=== PATIENT | male | born 1970 | race Caucasian/White ===

== ENCOUNTER 2018-05-18 03:20 | Emergency (ER) | payer BC ==
[2018-05-18] MEDS ORDERED: Sodium Chloride 0.9% 1,000 ML IV ONE (03:26)
[2018-05-18] MEDS ORDERED: Pantoprazole 40 MG Vial IVPUSH ONE (03:39)
[2018-05-18] MEDS ORDERED: Alum Hydrox/Mag Hydrox/Simeth 15 ML, Metoclopramide 5 MG, Lidocaine 2% 5 ML PO ONE ×3 (03:39)
[2018-05-18] MEDS ORDERED: Aspirin 81 MG Tab.Chew PO ONE (03:40)
--- NOTE | 2018-05-18 03:42 | EDM.PDOC ---
ED HPI GENERAL MEDICAL PROBLEM - General Chief Complaint: Abdominal Pain Stated Complaint: ABDOMINAL PAIN Time Seen by Provider: 05/18/18 03:39 - History of Present Illness INITIAL COMMENTS - FREE TEXT/NARRATIVE: HISTORY AND PHYSICAL: History of present illness: Patient's 48-year-old white male presents with a concern of abdominal pain 2 days he describes this as a burning and felt this was indigestion but had no improvement with antacids there is no association shortness of breath palpitations nausea vomiting patient states he did feel somewhat sweaty tonight with this episode he denies history of hypertension diabetes or known cardiac disease Review of systems: As per history of present illness and below otherwise all systems reviewed and negative. Past medical history: As per history of present illness and as reviewed below otherwise noncontributory. Surgical history: As per history of present illness and as reviewed below otherwise noncontributory. Social history: No reported history of drug or alcohol abuse. Family history: As per history of present illness and as reviewed below otherwise noncontributory. Physical exam: HEENT: Atraumatic, normocephalic, pupils reactive, negative for conjunctival pallor or scleral icterus, mucous membranes moist, throat clear, neck supple, nontender, trachea midline. Lungs: Clear to auscultation, breath sounds equal bilaterally, chest nontender. Heart: S1S2, regular, negative for clicks, rubs, or JVD. Abdomen: Soft, nondistended, nontender. Negative for masses or hepatosplenomegaly. Negative for costovertebral tenderness. Pelvis: Stable nontender. Genitourinary: Deferred. Rectal: Deferred. Extremities: Atraumatic, negative for cords or calf pain. Neurovascular unremarkable. Neuro: Awake, alert, oriented. Cranial nerves II through XII unremarkable. Cerebellum unremarkable. Motor and sensory unremarkable throughout. Exam nonfocal. Diagnostics: CBC CMP PT/INR troponin chest x-ray EKG lipase Therapeutics: IV O2 monitor aspirin 324 mg GI cocktail Protonix 80 mg IV Impression: #1 epigastric abdominal pain Definitive disposition and diagnosis as appropriate pending reevaluation and review of above. - Related Data Allergies Allergy/AdvReac Type Severity Reaction Status Date / Time No Known Allergies Allergy Verified 05/18/18 03:38 Home Meds: Home Meds . [No Known Home Meds] 05/18/18 [History] ED ROS GENERAL - Review of Systems Review Of Systems: ROS reveals no pertinent complaints other than HPI. ED EXAM, GENERAL - Physical Exam Exam: See Below (A dictation) Course - Vital Signs Last Recorded V/S: Last Vital Signs Temp 35.7 C 05/18/18 03:42 Pulse 63 05/18/18 04:28 Resp 18 05/18/18 04:28 BP 149/85 H 05/18/18 04:28 Pulse Ox 97 05/18/18 04:28 - Orders/Labs/Meds Orders: Active Orders 24 hr Category Date Time Status EKG Documentation Completion [RC] STAT Care 05/18/18 03:39 Active Chest 1V Frontal [CR] Stat Exams 05/18/18 03:39 Taken COMPREHENSIVE METABOLIC PN,CMP [CHEM] Stat Lab 05/18/18 03:42 Results LIPASE [CHEM] Stat Lab 05/18/18 03:42 Results UA W/MICROSCOPIC [URIN] Stat Lab 05/18/18 04:10 Ordered Labs: Laboratory Tests 05/18/18 05/18/18 05/18/18 Range/Units 03:42 03:42 03:42 WBC 12.88 H (4.0-11.0) K/uL RBC 5.02 (4.50-5.90) M/uL Hgb 15.3 (13.0-17.0) g/dL Hct 44.1 (38.0-50.0) % MCV 87.8 (80.0-98.0) fL MCH 30.5 (27.0-32.0) pg MCHC 34.7 (31.0-37.0) g/dL RDW Std Deviation 41.3 (28.0-62.0) fl RDW Coeff of Ronak 13 (11.0-15.0) % Plt Count 233 (150-400) K/uL MPV 10.20 (7.40-12.00) fL Neut % (Auto) 81.2 H (48.0-80.0) % Lymph % (Auto) 13.1 L (16.0-40.0) % [place] % (Auto) 4.7 (0.0-15.0) % Eos % (Auto) 0.7 (0.0-7.0) % Baso % (Auto) 0.3 (0.0-1.5) % Neut # (Auto) 10.5 H (1.4-5.7) K/uL Lymph # (Auto) 1.7 (0.6-2.4) K/uL [place] # (Auto) 0.6 (0.0-0.8) K/uL Eos # (Auto) 0.1 (0.0-0.7) K/uL Baso # (Auto) 0.0 (0.0-0.1) K/uL Nucleated RBC % 0.0 /100WBC Nucleated RBCs # 0 K/uL INR 0.96 Sodium 140 (136-148) mmol/L Potassium 4.1 (3.5-5.1) mmol/L Chloride 103 (98-107) mmol/L Carbon Dioxide 26.8 (21.0-32.0) mmol/L BUN 12 (7.0-18.0) mg/dL Creatinine 1.1 (0.8-1.3) mg/dL Est Cr Clr Drug Dosing 90.14 mL/min Estimated GFR (MDRD) > 60.0 ml/min AST 22 (15-37) IU/L ALT 46 (14-63) IU/L Troponin I (0.000-0.056) ng/mL Albumin 4.0 (3.4-5.0) g/dL Urine Color Urine Appearance Urine pH (5.0-8.0) Ur Specific [place] (1.001-1.035) Urine Protein (NEGATIVE) mg/dL Urine Glucose (UA) (NEGATIVE) mg/dL Urine Ketones (NEGATIVE) mg/dL Urine Occult Blood (NEGATIVE) Urine Nitrite (NEGATIVE) Urine Bilirubin (NEGATIVE) Urine Urobilinogen (<2.0) EU/dL Ur Leukocyte Esterase (NEGATIVE) Urine RBC (0-2/HPF) Urine WBC (0-5/HPF) Ur Epithelial Cells (NONE-FEW) Urine Bacteria (NEGATIVE) Urine Mucus (NONE-MOD) 05/18/18 05/18/18 Range/Units 03:42 04:10 WBC (4.0-11.0) K/uL RBC (4.50-5.90) M/uL Hgb (13.0-17.0) g/dL Hct (38.0-50.0) % MCV (80.0-98.0) fL MCH (27.0-32.0) pg MCHC (31.0-37.0) g/dL RDW Std Deviation (28.0-62.0) fl RDW Coeff of [place]ak (11.0-15.0) % Plt Count (150-400) K/uL MPV (7.40-12.00) fL Neut % (Auto) (48.0-80.0) % Lymph % (Auto) (16.0-40.0) % [place] % (Auto) (0.0-15.0) % Eos % (Auto) (0.0-7.0) % Baso % (Auto) (0.0-1.5) % Neut # (Auto) (1.4-5.7) K/uL Lymph # (Auto) (0.6-2.4) K/uL [place] # (Auto) (0.0-0.8) K/uL Eos # (Auto) (0.0-0.7) K/uL Baso # (Auto) (0.0-0.1) K/uL Nucleated RBC % /100WBC Nucleated RBCs # K/uL INR Sodium (136-148) mmol/L Potassium (3.5-5.1) mmol/L Chloride (98-107) mmol/L Carbon Dioxide (21.0-32.0) mmol/L BUN (7.0-18.0) mg/dL Creatinine (0.8-1.3) mg/dL Est Cr Clr Drug Dosing mL/min Estimated GFR (MDRD) ml/min AST (15-37) IU/L ALT (14-63) IU/L Troponin I < 0.050 (0.000-0.056) ng/mL Albumin (3.4-5.0) g/dL Urine Color YELLOW Urine Appearance CLEAR Urine pH 5.5 (5.0-8.0) Ur Specific [place] >= 1.030 (1.001-1.035) Urine Protein NEGATIVE (NEGATIVE) mg/dL Urine Glucose (UA) NEGATIVE (NEGATIVE) mg/dL Urine Ketones NEGATIVE (NEGATIVE) mg/dL Urine Occult Blood SMALL H (NEGATIVE) Urine Nitrite NEGATIVE (NEGATIVE) Urine Bilirubin NEGATIVE (NEGATIVE) Urine Urobilinogen 0.2 (<2.0) EU/dL Ur Leukocyte Esterase NEGATIVE (NEGATIVE) Urine RBC 1-3 (0-2/HPF) Urine WBC 0-2 (0-5/HPF) Ur Epithelial Cells RARE (NONE-FEW) Urine Bacteria RARE (NEGATIVE) Urine Mucus LIGHT (NONE-MOD) Meds: Medications Discontinued Medications Generic Name Dose Route Start Last Admin Trade Name Mark PRN Reason Stop Dose Admin Aspirin 324 mg 05/18/18 03:40 05/18/18 03:51 Aspirin PO 05/18/18 03:41 324 mg ONETIME ONE Administration Al Hydroxide/Mg Hydroxide 15 0 ml 05/18/18 03:39 05/18/18 03:50 ml/ Metoclopramide HCl 5 mg/ PO 05/18/18 03:40 1 each Lidocaine HCl 5 ml ONETIME ONE Administration Sodium Chloride 1,000 mls @ 999 mls/hr 05/18/18 03:26 05/18/18 03:59 Normal Saline IV 05/18/18 04:26 999 mls/hr STAT ONE Administration Pantoprazole Sodium 80 mg 05/18/18 03:39 05/18/18 04:01 Protonix Iv IVPUSH 05/18/18 03:40 80 mg .BOLUS ONE Administration Departure - Departure Time of Disposition: 05:21 Disposition: Home, Self-Care 01 Condition: Good Clinical Impression: Abdominal pain - Discharge Information *PRESCRIPTION DRUG MONITORING PROGRAM REVIEWED*: Not Applicable *COPY OF PRESCRIPTION DRUG MONITORING REPORT IN PATIENT SARBJIT: Not Applicable Referrals: PCP,None [Primary Care Provider] - Forms: ED Department Discharge Additional Instructions: The following information is given to patients seen in the emergency department who are being discharged to home. This information is to outline your options for follow-up care. We provide all patients seen in our emergency department with a follow-up referral. The need for follow-up, as well as the timing and circumstances, are variable depending upon the specifics of your emergency department visit. If you don't have a primary care physician on staff, we will provide you with a referral. We always advise you to contact your personal physician following an emergency department visit to inform them of the circumstance of the visit and for follow-up with them and/or the need for any referrals to a consulting specialist. The emergency department will also refer you to a specialist when appropriate. This referral assures that you have the opportunity for followup care with a specialist. All of these measure are taken in an effort to provide you with optimal care, which includes your followup. Under all circumstances we always encourage you to contact your private physician who remains a resource for coordinating your care. When calling for followup care, please make the office aware that this follow-up is from your recent emergency room visit. If for any reason you are refused follow-up, please contact the [facility] emergency department at and asked to speak to the emergency department charge nurse. [facility] - General Surgery Professional Building [address] [place] [address], [address] [place] [address] Protonix as prescribed follow-up Gen. surgery: Schedule appointment return as needed as discussed[] - My Orders Last 24 Hours: My Active Orders 05/18/18 03:39 EKG Documentation Completion [RC] STAT Chest 1V Frontal [CR] Stat 05/18/18 03:42 COMPREHENSIVE METABOLIC PN,CMP [CHEM] Stat LIPASE [CHEM] Stat 05/18/18 04:10 UA W/MICROSCOPIC [URIN] Stat - Assessment/Plan Last 24 Hours: My Active Orders 05/18/18 03:39 EKG Documentation Completion [RC] STAT Chest 1V Frontal [CR] Stat 05/18/18 03:42 COMPREHENSIVE METABOLIC PN,CMP [CHEM] Stat LIPASE [CHEM] Stat 05/18/18 04:10 UA W/MICROSCOPIC [URIN] Stat
[2018-05-18 04:15] LABS: CHLORIDE,CL 103 mmol/L (98-107); SODIUM,NA 140 mmol/L (136-148)
--- NOTE | 2018-05-18 09:09 | CR ---
EXAM DATE: 05/18/18 PATIENT'S AGE: 48 Patient: RAJEEV JENSEN Facility: [place], [place] Site . Site : 1970 Study: XRay Chest [id number]/23/2018 4:27:13 AM Ordering Physician: Leatha Agosto Final Report: Indication: Epigastric pain for 1 day Technique: Chest 1 view Comparison: None Findings/Impression: Cardiovascular and mediastinum: Heart size and vasculature are normal in caliber and appearance. Mediastinum is within normal limits. Lungs and pleural space: Lungs are clear. No sign of infiltrate or mass. No sign of pleural effusion. No pneumothorax. Bones and soft tissues: No significant findings. Dictated by Desi Campoverde MD @ May 18 2018 4:34AM (Electronic Signature) Report Signed by Proxy. [facility]PITALAndriy
== END 2018-05-18 05:36 | disposition home or self-care (01) ==
LOC: MW.ED 03:20
DX: R10.13 Epigastric pain (principal)
CPT/HCPCS: 36415; 71045; 80053; 81001; 83690; 84484; 85025; 85610; 93005; 96361; 96374; 99284; A9270; C9113; J7040; 99283

== ENCOUNTER 2020-05-26 14:06 | Emergency (ER) | payer SELFPAY ==
--- NOTE | 2020-05-26 14:16 | EDM.PDOC ---
ED HPI GENERAL MEDICAL PROBLEM - General Stated Complaint: TROUBLE URINATING Time Seen by Provider: 05/26/20 14:16 Source of Information: Reports: Patient History Limitations: Reports: No Limitations - History of Present Illness INITIAL COMMENTS - FREE TEXT/NARRATIVE: HISTORY AND PHYSICAL: History of present illness: Patient is a 50-year-old male who presents to the emergency room with complaints of urinary retention. States he last voided last evening before bed, normal. This morning when he woke up he was unable to void. He had the sensation of needing to void, although was not able to release any urine. He has suprapubic/lower abdominal discomfort. No previous history of urinary retention or prostate issues. Prior to last evening was feeling healthy and had no complaints or concerns. Patient denies any fever, chills, headache, change in vision, syncope or near syncope. Denies any chest pain, back pain, shortness of breath or cough. Denies any abdominal pain, nausea, vomiting, diarrhea, constipation or dysuria. Has not noted any blood in urine or stool. Denies any testicular pain, redness or swelling. Patient has been eating and drinking appropriately. Review of systems: As per history of present illness and below otherwise all systems reviewed and negative. Past medical history: As per history of present illness and as reviewed below otherwise noncontributory. Surgical history: As per history of present illness and as reviewed below otherwise noncontributory. Social history: See social history for further information Family history: As per history of present illness and as reviewed below otherwise noncontributory. Physical exam: General: Well developed and well nourished 50-year-old male. Alert and orientated x 3. Nontoxic in appearance and in no acute distress. Vital signs are stable and have been reviewed by me. Nursing notes were reviewed. HEENT: Atraumatic, normocephalic, pupils equal and reactive bilaterally, negative for conjunctival pallor or scleral icterus, mucous membranes moist, TMs normal bilaterally, throat clear, neck supple, nontender, trachea midline. No drooling or trismus noted. No meningeal signs. No hot potato voice noted. Lungs: Clear to auscultation, breath sounds equal bilaterally, chest nontender. Normal work of breathing, no accessory muscles used. Heart: S1S2, regular rate and rhythm without overt murmur Abdomen: Soft, nondistended, suprapubic tenderness. Negative for masses or hepatosplenomegaly. Negative for costovertebral tenderness. Skin: Intact, warm, dry. No lesions or rashes noted. Hematologic: No petechiae or purpra. Mucosa appropriate color and normal nail bed color and refill. Extremities: Atraumatic, moves all extremities per self without difficulty or deficits, negative for cords or calf pain. Neurovascular unremarkable. Neuro: Awake, alert, oriented. Cranial nerves II through XII unremarkable. Cerebellum unremarkable. Motor and sensory unremarkable throughout. Exam nonfocal. Notes: Patient has over 600 and his bladder per bladder scanner. Courtney was inserted, he had instant relief with Courtney insert. Urine shows no evidence of UTI. He did get him an appointment with the urologist as we will keep the Courtney in until he is evaluated by Dr. Srivastava. Upon reevaluation the patient feels better and he is appropriate for discharge. We discussed signs and symptoms that would prompt them to return to the Emergency Department. Medication, follow up and supportive care measures were reviewed and discussed. Voices understanding and is agreeable to plan of care. Denies any further questions or concerns at this time. Diagnostics: UA Therapeutics: Bladder scan, Courtney Prescription: None Impression: Urinary retention Plan: 1. Today your physical exam shows you were retaining urine in your bladder. We put a courtney in place to help drain your urine. 2. We made you an appointment to see Dr Euceda (urologist) on Tuesday (May 28, 2020) at 1:30pm. They will take your courtney catheter out for you and create a plan of care. 3. We always encourage you to follow up with your primary care provider or recommended specialist in the next few days for re-evaluation and further care/management. If your symptoms should worsen, new symptoms develop or any of the signs and symptoms we discussed should arise please return to the emergency room or call 911 (if needed). Definitive disposition and diagnosis as appropriate pending reevaluation and review of above. - Related Data Allergies Allergy/AdvReac Type Severity Reaction Status Date / Time No Known Allergies Allergy Verified 05/26/20 14:24 Home Meds: Home Meds Omeprazole 40 mg PO DAILY 05/26/20 [History] Past Medical History - Past Health History Medical/Surgical History: Denies Medical/Surgical History ED ROS GENERAL - Review of Systems Review Of Systems: Comprehensive ROS is negative, except as noted in HPI. ED EXAM, GI/ABD - Physical Exam Exam: See Below (See dictation) Course - Vital Signs Last Recorded V/S: Last Vital Signs Temp 96.3 F L 05/26/20 15:21 Pulse 99 05/26/20 15:21 Resp 16 05/26/20 14:21 BP 141/89 H 05/26/20 15:21 Pulse Ox 93 L 05/26/20 15:21 - Orders/Labs/Meds Orders: Active Orders 24 hr Category Date Time Status Courtney Catheter Insertion [Insert Urinary Catheter] [OM. Care 05/26/20 14:30 Ordered PC] Q24H Labs: Laboratory Tests 05/26/20 Range/Units 14:44 Urine Color YELLOW Urine Appearance CLEAR Urine pH 5.5 (5.0-8.0) Ur Specific [place] 1.015 (1.001-1.035) Urine Protein NEGATIVE (NEGATIVE) mg/dL Urine Glucose (UA) NEGATIVE (NEGATIVE) mg/dL Urine Ketones NEGATIVE (NEGATIVE) mg/dL Urine Occult Blood SMALL H (NEGATIVE) Urine Nitrite NEGATIVE (NEGATIVE) Urine Bilirubin NEGATIVE (NEGATIVE) Urine Urobilinogen 0.2 (<2.0) EU/dL Ur Leukocyte Esterase NEGATIVE (NEGATIVE) Urine RBC 1-4 (0-2/HPF) Urine WBC 0-3 (0-5/HPF) Ur Epithelial Cells RARE (NONE-FEW) Urine Bacteria FEW (NEGATIVE) Departure - Departure Time of Disposition: 15:09 Disposition: Home, Self-Care 01 Clinical Impression: Urinary retention - Discharge Information Instructions: Acute Urinary Retention, Male Referrals: Harman Euceda MD [Physician] - 05/28/20 1:30 pm Forms: ED Department Discharge Additional Instructions: The following information is given to patients seen in the emergency department who are being discharged to home. This information is to outline your options for follow-up care. We provide all patients seen in our emergency department with a follow-up referral. The need for follow-up, as well as the timing and circumstances, are variable depending upon the specifics of your emergency department visit. If you don't have a primary care physician on staff, we will provide you with a referral. We always advise you to contact your personal physician following an emergency department visit to inform them of the circumstance of the visit and for follow-up with them and/or the need for any referrals to a consulting specialist. The emergency department will also refer you to a specialist when appropriate. This referral assures that you have the opportunity for follow-up care with a specialist. All of these measure are taken in an effort to provide you with optimal care, which includes your follow-up. Under all circumstances we always encourage you to contact your private physician who remains a resource for coordinating your care. When calling for follow-up care, please make the office aware that this follow-up is from your recent emergency room visit. If for any reason you are refused follow-up, please contact the [facility] Emergency Department at and asked to speak to the emergency department charge nurse. [facility] Primary Care [address] [place] [id number] [address] Thank you for choosing the [facility] emergency department in [place] for your medical needs today. It was a pleasure caring for you. Today you were seen in the emergency department for urinary retention. 1. Today your physical exam shows you were retaining urine in your bladder. We put a courtney in place to help drain your urine. 2. We made you an appointment to see Dr Euceda (urologist) on Tuesday (May 28, 2020) at 1:30pm. They will take your courtney catheter out for you and create a plan of care. 3. We always encourage you to follow up with your primary care provider or recommended specialist in the next few days for re-evaluation and further care/management. If your symptoms should worsen, new symptoms develop or any of the signs and symptoms we discussed should arise please return to the emergency room or call 911 (if needed). Sepsis Event Note (ED) - Focused Exam Vital Signs: Vital Signs Temp Pulse Resp BP Pulse Ox 05/26/20 15:21 96.3 F L 99 141/89 H 93 L 05/26/20 15:15 97 145/96 H 95 05/26/20 14:21 96.3 F L 116 H 16 182/122 H 94 L - My Orders Last 24 Hours: My Active Orders 05/26/20 14:30 Courtney Catheter Insertion [Insert Urinary Catheter] [OM.PC] Q24H - Assessment/Plan Last 24 Hours: My Active Orders 05/26/20 14:30 Courtney Catheter Insertion [Insert Urinary Catheter] [OM.PC] Q24H
== END 2020-05-26 15:28 | disposition home or self-care (01) ==
LOC: MW.ED 14:06
DX: R33.9 Retention of urine, unspecified (principal)
CPT/HCPCS: 51702; 51798; 81001; 99282; 99283

== ENCOUNTER 2020-09-19 15:22 | Emergency (ER) | payer BC, OTHER ==
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
[2020-09-19] MEDS ORDERED: Diphtheria,Pertussis(Acell),Tetanus Vaccine 0.5 ML Syringe IM ONE ×2 (15:36→16:10)
[2020-09-19 15:58] LABS: BLOOD UREA NITROGEN,BUN 12 mg/dL (7.0-18.0); CARBON DIOXIDE,CO2 23.3 mmol/L (21.0-32.0); CHLORIDE,CL 105 mmol/L (98-107); GLUCOSE RANDOM 104 mg/dL (74-106); SODIUM,NA 143 mmol/L (136-148)
--- NOTE | 2020-09-19 16:11 | CT ---
Indication: MCA Technique: Noncontrast CT chest Comparison: No comparison study available Findings: Aneurysmal dilatation of ascending thoracic aorta measuring 4.3 cm. Heart size is normal. No mediastinal or hilar adenopathy. No pericardial effusion. . No pneumothorax. No effusion. Bilateral peripheral subtle ill-defined nodular opacities 5 millimeter right middle lobe pulmonary nodule series 202, image 59. Fatty liver. Spleen pancreas gallbladder appears unremarkable. Left adrenal gland is unremarkable. Small subcapsular hematoma on the right partially seen measuring up to 6 millimeters. 4 x 2.2 centimeter dense right adrenal lesion. There is surrounding soft tissue stranding that appears dense. In the setting of MCA this most likely reflects adrenal hematoma with surrounding hemorrhage. Right posterior 6th rib fracture. Impression: 1. 4 x 2.2 centimeter dense right adrenal lesion there is surrounding dense soft tissue stranding which in the setting of MCA this most likely reflects adrenal hematoma with surrounding hemorrhage. Follow-up imaging is recommended. There is a small subcapsular hematoma on the right measuring up to 6 millimeters that is only partially imaged. 2. Right posterior 6th rib fracture. 3. Scattered bilateral subtle ill-defined nodular opacities peripherally the may reflect infectious or inflammatory process to include atypical infections. 5 millimeter right middle lobe pulmonary nodule follow-up per Fleischner society guidelines. 4. 4.3 centimeter ascending thoracic aortic aneurysm. Please note that all CT scans at this facility use dose modulation, iterative reconstruction, and/or weight-based dosing when appropriate to reduce radiation dose to as low as reasonably achievable. Dictated by Katya Go MD @ Sep 19 2020 3:54PM Signed by Dr. Katya Go @ Sep 19 2020 4:08PM
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
--- NOTE | 2020-09-19 17:25 | CT ---
Indication: [facility] Technique: Contrast-enhanced CT abdomen and pelvis with 100 mL Isovue 370 Comparison: Chest CT 09/19/2020 Findings: Fatty liver gallbladder pancreas spleen is unremarkable. Left adrenal gland unremarkable left kidney is unremarkable. No abdominal aortic aneurysm. Again seen is heterogeneous dense right adrenal 4.4 x 3.2 centimeter lesion there is surrounding dense soft tissues this most likely reflects adrenal hematoma with surrounding hemorrhage. There is laceration through the right inferior pole of the kidney that extends through the renal medulla in through the cortex. There is there is nonenhancement of the medial right upper kidney reflecting segmental infarction. There is surrounding mild perinephric hemorrhage. Small subcapsular hematoma measuring up to 6 millimeters. No active contrast extravasation is seen. No free air is visualized. No fractures are seen. Bowel is unremarkable in large prostate gland. Small fat containing inguinal hernias. Impression: 1. Laceration seen through the right inferior kidney involving the medulla and extending through the cortex. No active contrast extravasation/hemorrhage is seen. Additionally there is nonenhancement of the right upper medial kidney reflecting segmental infarction. Grade II injury. Mild perinephric hemorrhage. 6 millimeter small subcapsular hematoma. 2. 4.4 x 3.2 centimeter dense right adrenal lesion most likely reflecting hematoma with surrounding hemorrhage. Follow-up recommended. Results called to at at 5:20pm. Please note that all CT scans at this facility use dose modulation, iterative reconstruction, and/or weight-based dosing when appropriate to reduce radiation dose to as low as reasonably achievable. Dictated by Katya Go MD @ Sep 19 2020 5:23PM Signed by Dr. Katya Go @ Sep 19 2020 5:23PM
[2020-09-19] MEDS ORDERED: fentaNYL 50 MCG/ML SDV IVPUSH ONE (17:31)
[2020-09-19] MEDS ORDERED: Iopamidol 755 MG/ML 500 ML Multipack Bottle IVPUSH STA (17:35)
[2020-09-19] MEDS ORDERED: Sodium Chloride 0.9% 1,000 ML IV ONE (17:38)
[2020-09-19 18:28] LABS: CORONAVIRUS COVID-19 NAA POSITIVE (NEGATIVE); INFLUENZA A NAA NEGATIVE (NEGATIVE); INFLUENZA B NAA NEGATIVE (NEGATIVE)
== END 2020-09-19 22:45 ==
LOC: MW.ED 15:23
DX: S37.039A Laceration of unspecified kidney, unspecified degree, initial encounter (principal); S01.81XA Laceration without foreign body of other part of head, initial encounter; S80.212A Abrasion, left knee, initial encounter; U07.1 COVID-19; Z23 Encounter for immunization; V29.9XXA Motorcycle rider (driver) (passenger) injured in unspecified traffic accident, initial encounter
CPT/HCPCS: 0240U; 36415; 70450; 70486; 71250; 72125; 72170; 74177; 80053; 80305; 80307; 85025; 85610; 85730; 90471; 96374; 99285; J3010; J7030; Q9967; 99284

== ENCOUNTER 2022-05-20 15:47 | Emergency (ER) | payer SELFPAY ==
[2022-05-20 21:10] LABS: CARBON DIOXIDE,CO2 20.8 mmol/L (21.0-32.0); POTASSIUM,K 3.4 mmol/L (3.5-5.1)
== END 2022-05-20 22:00 | disposition home or self-care (01) ==
LOC: MW.ED 15:47
DX: N40.1 Benign prostatic hyperplasia with lower urinary tract symptoms (principal); R33.8 Other retention of urine; Z79.899 Other long term (current) drug therapy
CPT/HCPCS: 36415; 51702; 80053; 81001; 83690; 85025; 99284

== ENCOUNTER 2022-05-28 09:21 | Emergency (ER) | payer SELFPAY | END 2022-05-28 12:10 | disposition home or self-care (01) | LOC: MW.ED 09:21 | DX: R33.9 Retention of urine, unspecified (principal); Z86.16 Personal history of COVID-19 | CPT/HCPCS: 51702; 81001; 99283 ==

== ENCOUNTER 2022-07-16 12:54 | Emergency (ER) | payer SELFPAY | END 2022-07-16 15:56 | disposition home or self-care (01) | LOC: MW.ED 12:54 | DX: R33.9 Retention of urine, unspecified (principal) | CPT/HCPCS: 51702; 81001; 99282; 99283 ==

== ENCOUNTER 2022-08-23 22:57 | Emergency (ER) | payer SELFPAY | END 2022-08-24 00:12 | disposition home or self-care (01) | LOC: MW.ED 22:57 | DX: R33.9 Retention of urine, unspecified (principal); Z86.16 Personal history of COVID-19 | CPT/HCPCS: 51702; 81001; 99283 ==

== ENCOUNTER 2022-11-06 18:54 | Emergency (ER) | payer MEDICAID ==
[2022-11-06] MEDS ORDERED: Acetaminophen/HYDROcodone 325-10 MG Tab PO STA (21:13)
== END 2022-11-06 23:39 | disposition home or self-care (01) ==
LOC: MW.ED 18:54
DX: S82.832A Other fracture of upper and lower end of left fibula, initial encounter for closed fracture (principal); Z86.16 Personal history of COVID-19; W00.0XXA Fall on same level due to ice and snow, initial encounter
CPT/HCPCS: 73610; 99283; A9270

== ENCOUNTER 2023-03-28 17:17 | Emergency (ER) | payer MEDICAID ==
[2023-03-28 19:21] LABS: APPEARANCE,URINE CLOUDY; BILIRUBIN,URINE NEGATIVE (NEGATIVE); COLOR,URINE BROWN; GLUCOSE,URINE NEGATIVE (NEGATIVE); KETONES,URINE TRACE mg/dL (NEGATIVE); LEUKOCYTE ESTERASE,URINE LARGE (NEGATIVE); NITRITE,URINE POSITIVE (NEGATIVE); OCCULT BLOOD,URINE LARGE (NEGATIVE); PROTEIN,URINE >=300 mg/dL (NEGATIVE); UROBILINOGEN,URINE 0.2 EU/dL (<2.0)
[2023-03-28 19:39] LABS: BACTERIA,URINE MODERATE (NEGATIVE); EPITHELIAL CELLS,URINE OCCASIONAL (NONE-FEW); RBC,URINE 40-50 (0-2/HPF); SQUAMOUS EPITHELIAL CELLS,UR OCCASIONAL; WBC,URINE TO NUMEROUS TO COUNT (0-5/HPF)
[2023-03-28] MEDS ORDERED: Lidocaine 1% PF 2 ML SDV INJECT ONE (19:41)
[2023-03-28] MEDS ORDERED: cefTRIAXone 1 GM Vial IM ONE (19:41)
[2023-03-28] MEDS ORDERED: Sodium Chloride 0.9% 10 ML Syringe FLUSH PRN (21:25)
[2023-03-28] MEDS ORDERED: Sodium Chloride 0.9% 1,000 ML IV ONE ×2 (21:25→23:25)
[2023-03-28] MEDS ORDERED: Sodium Chloride 0.9% 2.5 ML Syringe FLUSH PRN (21:25)
[2023-03-28] MEDS ORDERED: Ketorolac 30 MG/ML SDV IVPUSH ONE (21:35)
[2023-03-28 21:56] LABS: BASOPHILS PERCENT AUTO 0.2 % (0.0-1.5); EOSINOPHILS ABSOLUTE AUTO 0.1 K/uL (0.0-0.7); EOSINOPHILS PERCENT AUTO 1.2 % (0.0-7.0); HEMATOCRIT 47.6 % (38.0-50.0); HEMOGLOBIN 16.4 g/dL (13.0-17.0); LYMPHOCYTES ABSOLUTE AUTO 0.8 K/uL (0.6-2.4); LYMPHOCYTES PERCENT AUTO 7.6 % (16.0-40.0); MEAN CORPUSCULAR HEMOGLOBIN 31.8 pg (27.0-32.0); MEAN CORPUSCULAR HGB CONC 34.5 g/dL (31.0-37.0); MEAN CORPUSCULAR VOLUME 92.4 fL (80.0-98.0); MONOCYTES ABSOLUTE AUTO 0.9 K/uL (0.0-0.8); MONOCYTES PERCENT AUTO 8.8 % (0.0-15.0); NEUTROPHILS ABSOLUTE AUTO 8.3 K/uL (1.4-5.7); NEUTROPHILS PERCENT AUTO 82.2 % (48.0-80.0); NRBC ABSOLUTE 0 K/uL; PLATELET COUNT,PLT 269 K/uL (150-400); RED BLOOD CELL COUNT 5.15 M/uL (4.50-5.90); WHITE BLOOD CELL COUNT,WBC 10.12 K/uL (4.0-11.0)
[2023-03-28 22:17] LABS: A/G RATIO 0.6 (0.9-1.6); BILIRUBIN TOTAL 0.3 mg/dL (0.2-1.0); CALCIUM 9.5 mg/dL (8.5-10.1); CARBON DIOXIDE,CO2 17.6 mmol/L (21.0-32.0); CREATININE 19.2 mg/dL (0.8-1.3); EST CRCL DRUG DOSING (CG) 4.94 mL/min; POTASSIUM,K 4.9 mmol/L (3.5-5.1); PROTEIN TOTAL,TP 8.3 g/dL (6.4-8.2)
[2023-03-28] MEDS ORDERED: Sodium Chloride 0.9% 1,000 ML IV SCH (23:30)
== END 2023-03-29 05:10 ==
LOC: MW.ED 17:17
DX: N17.9 Acute kidney failure, unspecified (principal); R18.8 Other ascites; N39.0 Urinary tract infection, site not specified; N20.0 Calculus of kidney; Z86.16 Personal history of COVID-19
CPT/HCPCS: 36415; 51702; 74176; 80053; 81001; 85025; 87086; 96361; 96372; 96374; 99285; J0696; J1885; J3490; J7030; 99291

== ENCOUNTER 2023-04-27 18:32 | Emergency (ER) | payer MEDICAID ==
[2023-04-27] MEDS ORDERED: Sodium Chloride 0.9% 2.5 ML Syringe FLUSH PRN (18:40)
[2023-04-27] MEDS ORDERED: Sodium Chloride 0.9% 10 ML Syringe FLUSH PRN (18:40)
[2023-04-27 19:11] LABS: BASOPHILS PERCENT AUTO 0.5 % (0.0-1.5); EOSINOPHILS PERCENT AUTO 0.2 % (0.0-7.0); HEMATOCRIT 46.1 % (38.0-50.0); LYMPHOCYTES ABSOLUTE AUTO 0.6 K/uL (0.6-2.4); LYMPHOCYTES PERCENT AUTO 10.2 % (16.0-40.0); MEAN CORPUSCULAR HEMOGLOBIN 32.1 pg (27.0-32.0); MEAN CORPUSCULAR HGB CONC 34.7 g/dL (31.0-37.0); MEAN CORPUSCULAR VOLUME 92.6 fL (80.0-98.0); MONOCYTES ABSOLUTE AUTO 0.7 K/uL (0.0-0.8); NEUTROPHILS ABSOLUTE AUTO 4.5 K/uL (1.4-5.7); NEUTROPHILS PERCENT AUTO 77.1 % (48.0-80.0); NRBC ABSOLUTE 0 K/uL; RED BLOOD CELL COUNT 4.98 M/uL (4.50-5.90); WHITE BLOOD CELL COUNT,WBC 5.81 K/uL (4.0-11.0)
[2023-04-27 19:15] LABS: PLATELET COUNT,PLT 180 K/uL (150-400)
[2023-04-27 20:05] LABS: A/G RATIO 0.9 (0.9-1.6); ALBUMIN 3.8 g/dL (3.4-5.0); BILIRUBIN TOTAL 0.5 mg/dL (0.2-1.0); CALCIUM 8.8 mg/dL (8.5-10.1); CARBON DIOXIDE,CO2 24.4 mmol/L (21.0-32.0); CREATININE 1.2 mg/dL (0.8-1.3); EST CRCL DRUG DOSING (CG) 78.14 mL/min; POTASSIUM,K 3.8 mmol/L (3.5-5.1); PROTEIN TOTAL,TP 8.1 g/dL (6.4-8.2)
[2023-04-27] MEDS ORDERED: Sodium Chloride 0.9% 1,000 ML IV STA (20:21)
[2023-04-27] MEDS ORDERED: oxyCODONE 5 MG Tab PO STA (20:21)
[2023-04-27] MEDS ORDERED: Acetaminophen 500 MG Tab PO STA (20:21)
[2023-04-27 20:57] LABS: APPEARANCE,URINE SLT CLOUDY; BILIRUBIN,URINE NEGATIVE (NEGATIVE); COLOR,URINE YELLOW; GLUCOSE,URINE NEGATIVE (NEGATIVE); KETONES,URINE NEGATIVE (NEGATIVE); LEUKOCYTE ESTERASE,URINE SMALL (NEGATIVE); NITRITE,URINE NEGATIVE (NEGATIVE); OCCULT BLOOD,URINE LARGE (NEGATIVE); PH,URINE 6.5 (5.0-8.0); PROTEIN,URINE 100 mg/dL (NEGATIVE); UROBILINOGEN,URINE 0.2 EU/dL (<2.0)
[2023-04-27 21:48] LABS: AMPHETAMINES SCREEN, URINE NEGATIVE (CUTOFF=500); BARBITURATE SCREEN,URINE NEGATIVE (CUTOFF=200); BENZODIAZEPINES SCREEN,URINE NEGATIVE (CUTOFF=150); BUPRENORPHINE SCREEN,URINE NEGATIVE (CUTOFF=10); METHADONE SCREEN, URINE NEGATIVE (CUTOFF=200); METHAMPHETAMINES SCREEN, URINE NEGATIVE (CUTOFF=500); OXYCODONE SCREEN,URINE NEGATIVE (CUT0FF=100); PCP SCREEN,URINE NEGATIVE (CUTOFF=25); PROPOXYPHENE SCREEN,URINE NEGATIVE (CUTOFF=300); THC SCREEN,URINE 20 NG/ML NEGATIVE (CUTOFF=50)
[2023-04-27 21:52] LABS: BACTERIA,URINE 3+ (NEGATIVE); EPITHELIAL CELLS,URINE RARE (NONE-FEW); WBC,URINE 20-30 (0-5/HPF)
[2023-04-27] MEDS ORDERED: Ciprofloxacin 500 MG Tab PO STA (21:58)
== END 2023-04-27 23:08 | disposition home or self-care (01) ==
LOC: MW.ED 18:32
DX: T83.511A Infection and inflammatory reaction due to indwelling urethral catheter, initial encounter (principal); N39.0 Urinary tract infection, site not specified; Z86.16 Personal history of COVID-19; Z79.899 Other long term (current) drug therapy
CPT/HCPCS: 36415; 51702; 80053; 80305; 80307; 81001; 82947; 83605; 85025; 87086; 96360; 99283; A9270; J3490; J7030; 99284

== ENCOUNTER 2023-05-22 12:31 | Emergency (ER) | payer MEDICAID | END 2023-05-22 13:37 | disposition home or self-care (01) | LOC: MW.ED 12:31 | DX: R33.9 Retention of urine, unspecified (principal); K21.9 Gastro-esophageal reflux disease without esophagitis; Z86.16 Personal history of COVID-19; Z96.0 Presence of urogenital implants | CPT/HCPCS: 51702; 99283 ==

== ENCOUNTER 2023-06-13 17:11 | Emergency (ER) | payer MEDICAID ==
[2023-06-13] MEDS ORDERED: oxyCODONE 5 MG Tab PO STA (18:33)
[2023-06-13 19:30] LABS: APPEARANCE,URINE CLOUDY; GLUCOSE,URINE NEGATIVE (NEGATIVE); KETONES,URINE NEGATIVE (NEGATIVE); LEUKOCYTE ESTERASE,URINE LARGE (NEGATIVE); NITRITE,URINE POSITIVE (NEGATIVE); OCCULT BLOOD,URINE LARGE (NEGATIVE); PH,URINE 8.5 (5.0-8.0); PROTEIN,URINE 100 mg/dL (NEGATIVE)
[2023-06-13 19:33] LABS: BILIRUBIN,URINE SMALL (NEGATIVE); COLOR,URINE AMBER
[2023-06-13 20:12] LABS: EPITHELIAL CELLS,URINE RARE (NONE-FEW); RBC,URINE TOO NUMEROUS TO CT (0-2/HPF); WBC,URINE 0-2 (0-5/HPF)
[2023-06-13 20:13] LABS: URIC ACID CRYSTALS,URINE FEW (NEGATIVE)
[2023-06-13 20:15] LABS: BACTERIA,URINE 3+ (NEGATIVE)
[2023-06-13] MEDS ORDERED: cefTRIAXone 1 GM Vial IM STA (20:27)
[2023-06-13] MEDS ORDERED: Lidocaine 1% PF 2 ML SDV INJECT ONE (20:32)
== END 2023-06-13 21:00 | disposition home or self-care (01) ==
LOC: MW.ED 17:11
DX: T83.511A Infection and inflammatory reaction due to indwelling urethral catheter, initial encounter (principal); Z86.16 Personal history of COVID-19; Z91.040 Latex allergy status
CPT/HCPCS: 51702; 81001; 87086; 96372; 99284; A9270; J0696; 99283; J3490

== ENCOUNTER 2023-06-25 19:38 | Emergency (ER) | payer MEDICAID ==
[2023-06-25 21:27] LABS: BILIRUBIN,URINE NEGATIVE (NEGATIVE); COLOR,URINE YELLOW; GLUCOSE,URINE NEGATIVE (NEGATIVE); KETONES,URINE NEGATIVE (NEGATIVE); LEUKOCYTE ESTERASE,URINE NEGATIVE (NEGATIVE); NITRITE,URINE NEGATIVE (NEGATIVE); OCCULT BLOOD,URINE LARGE (NEGATIVE); PROTEIN,URINE 100 mg/dL (NEGATIVE); UROBILINOGEN,URINE 0.2 EU/dL (<2.0)
[2023-06-25 21:29] LABS: APPEARANCE,URINE SLT CLOUDY
[2023-06-25 21:37] LABS: BACTERIA,URINE FEW (NEGATIVE); EPITHELIAL CELLS,URINE RARE (NONE-FEW)
[2023-06-25] MEDS ORDERED: oxyCODONE 5 MG Tab PO STA (21:54)
== END 2023-06-25 22:13 | disposition home or self-care (01) ==
LOC: MW.ED 19:38
DX: R33.9 Retention of urine, unspecified (principal); Z86.16 Personal history of COVID-19; Z91.040 Latex allergy status
CPT/HCPCS: 51702; 81001; 99283; A9270

== ENCOUNTER 2023-07-05 16:37 | Inpatient (IN) | payer MEDICAID ==
[2023-07-05] MEDS ORDERED: Sodium Chloride 0.9% 2.5 ML Syringe FLUSH PRN ×2 (16:39→21:31)
[2023-07-05] MEDS ORDERED: Sodium Chloride 0.9% 10 ML Syringe FLUSH PRN ×2 (16:39→21:31)
[2023-07-05 17:02] LABS: BASOPHILS ABSOLUTE AUTO 0.05 K/uL (0.00-0.20); BASOPHILS PERCENT AUTO 0.3 % (0.0-1.0); EOSINOPHILS ABSOLUTE AUTO 0.02 K/uL (0.00-0.45); EOSINOPHILS PERCENT AUTO 0.1 % (0.0-6.0); HEMATOCRIT 45.2 % (42.0-52.0); HEMOGLOBIN 15.7 g/dL (14.0-18.0); IMMATURE GRAN ABSOLUTE AUTO 0.14 K/uL (0.00-0.05); IMMATURE GRAN PERCENT AUTO 0.8 % (0.0-0.4); LYMPHOCYTES ABSOLUTE AUTO 0.94 K/uL (1.00-4.80); LYMPHOCYTES PERCENT AUTO 5.2 % (24.0-44.0); MEAN CORPUSCULAR HEMOGLOBIN 31.6 pg (28.0-32.0); MEAN CORPUSCULAR HGB CONC 34.7 g/dL (32.0-36.0); MEAN CORPUSCULAR VOLUME 90.9 fL (83.0-99.0); MONOCYTES ABSOLUTE AUTO 0.99 K/uL (0.00-0.80); MONOCYTES PERCENT AUTO 5.5 % (0.0-8.0); NEUTROPHILS ABSOLUTE AUTO 15.8 K/uL (1.8-7.7); NEUTROPHILS PERCENT AUTO 88.1 % (41.0-71.0); NRBC ABSOLUTE 0.02 K/uL (0.00-0.02); NRBC PERCENT 0.1 /100WBC (0.0-0.2); RED BLOOD CELL COUNT 4.97 M/uL (4.52-5.90); WHITE BLOOD CELL COUNT,WBC 17.97 K/uL (3.9-11.3)
[2023-07-05] MEDS ORDERED: oxyCODONE 5 MG Tab PO STA (17:03)
[2023-07-05 17:25] LABS: A/G RATIO 0.9 (0.9-1.6); ALANINE AMINOTRANSFERASE,ALT 55 IU/L (14-63); ALBUMIN 3.7 g/dL (3.4-5.0); ALKALINE PHOSPHATASE 71 U/L (46-116); ASPARTATE AMNIOTRANSFERASE,AST 76 IU/L (15-37); BILIRUBIN TOTAL 1.5 mg/dL (0.2-1.0); BLOOD UREA NITROGEN,BUN 31 mg/dL (7.0-18.0); CALCIUM 10.1 mg/dL (8.5-10.1); CARBON DIOXIDE,CO2 22.7 mmol/L (21.0-32.0); CHLORIDE,CL 90 mmol/L (98-107); CREATININE 1.6 mg/dL (0.8-1.3); GLUCOSE RANDOM 135 mg/dL (74-106); LIPASE 82 U/L (16-77); POTASSIUM,K 3.2 mmol/L (3.5-5.1); PROTEIN TOTAL,TP 7.8 g/dL (6.4-8.2); SODIUM,NA 128 mmol/L (136-148)
[2023-07-05 17:29] LABS: PLATELET COUNT,PLT 88 K/uL (150-400)
[2023-07-05 17:30] LABS: ESTIMATED GFR 51 mL/min (>60)
[2023-07-05] MEDS ORDERED: cefTRIAXone 2 GM in Sodium Chloride 0.9% 50 ML IV STA (17:41)
[2023-07-05] MEDS ORDERED: Sodium Chloride 0.9% 1,000 ML IV STA ×3 (17:44→19:50)
[2023-07-05 17:45] LABS: CORONAVIRUS COVID-19 NAA NEGATIVE (NEGATIVE); INFLUENZA A NAA NEGATIVE (NEGATIVE); INFLUENZA B NAA NEGATIVE (NEGATIVE)
[2023-07-05 18:06] LABS: APPEARANCE,URINE SLT CLOUDY; GLUCOSE,URINE NEGATIVE (NEGATIVE); KETONES,URINE 15 mg/dL (NEGATIVE); LEUKOCYTE ESTERASE,URINE SMALL (NEGATIVE); NITRITE,URINE NEGATIVE (NEGATIVE); OCCULT BLOOD,URINE LARGE (NEGATIVE); PROTEIN,URINE 100 mg/dL (NEGATIVE)
[2023-07-05 18:08] LABS: BILIRUBIN,URINE SMALL (NEGATIVE); COLOR,URINE AMBER
[2023-07-05 18:33] LABS: INR 0.97 (0.86-1.11)
[2023-07-05] MEDS ORDERED: Iopamidol 755 MG/ML 500 ML Multipack Bottle IVPUSH STA (18:46)
[2023-07-05 18:53] LABS: BACTERIA,URINE FEW (NEGATIVE); EPITHELIAL CELLS,URINE RARE (NONE-FEW); MUCUS,URINE MODERATE (NONE-MOD); RBC,URINE 20-25 (0-2/HPF); WBC,URINE 18-20 (0-5/HPF)
[2023-07-05] MEDS ORDERED: Albuterol/Ipratropium 3.0-0.5 MG/3 ML Neb Soln NEB PRN (21:31)
[2023-07-05] MEDS ORDERED: Ondansetron 4 MG/2 ML SDV IVPUSH PRN (21:31)
[2023-07-05] MEDS ORDERED: Polyethylene Glycol 3350 Powder 17 GM Packet PO PRN (21:31)
[2023-07-05] MEDS ORDERED: Sodium Chloride 0.9% 20 ML SDV IV PRN (21:31)
[2023-07-05] MEDS ORDERED: Acetaminophen 325 MG Tab PO PRN (21:31)
[2023-07-05] MEDS ORDERED: Enoxaparin 40 MG/0.4 ML Syringe SUBCUT SCH ×2 (21:45)
[2023-07-05] MEDS ORDERED: VANCOmycin 2 GM/400 ML 2 GM in Premix Bag 1 BAG IV ONE (22:00)
[2023-07-05] MEDS: Piperacillin/Tazobactam 3.375 GM in Sodium Chloride 0.9% 100 ML IV SCH (23:01)
[2023-07-05] MEDS ORDERED: Lactated Ringers 1,000 ML IV ONE (23:20)
[2023-07-06] MEDS ORDERED: Lactated Ringers 1,000 ML IV SCH (00:30)
[2023-07-06 01:58] LABS: LACTIC ACID 1.6 mmol/L (0.4-2.0)
[2023-07-06] MEDS: Lactated Ringers 1,000 ML IV SCH ×3 (04:02→23:17)
[2023-07-06] MEDS: Piperacillin/Tazobactam 3.375 GM in Sodium Chloride 0.9% 100 ML IV SCH ×3 (06:07→22:26)
[2023-07-06 06:12] LABS: BASOPHILS ABSOLUTE AUTO 0.04 K/uL (0.00-0.20); BASOPHILS PERCENT AUTO 0.4 % (0.0-1.0); EOSINOPHILS ABSOLUTE AUTO 0.11 K/uL (0.00-0.45); EOSINOPHILS PERCENT AUTO 1.1 % (0.0-6.0); HEMATOCRIT 34.3 % (42.0-52.0); HEMOGLOBIN 11.9 g/dL (14.0-18.0); IMMATURE GRAN ABSOLUTE AUTO 0.09 K/uL (0.00-0.05); IMMATURE GRAN PERCENT AUTO 0.9 % (0.0-0.4); LYMPHOCYTES ABSOLUTE AUTO 1.59 K/uL (1.00-4.80); LYMPHOCYTES PERCENT AUTO 16.3 % (24.0-44.0); MEAN CORPUSCULAR HEMOGLOBIN 32.1 pg (28.0-32.0); MEAN CORPUSCULAR HGB CONC 34.7 g/dL (32.0-36.0); MEAN CORPUSCULAR VOLUME 92.5 fL (83.0-99.0); MEAN PLATELET VOLUME 11.2 fL (9.4-12.4); MONOCYTES ABSOLUTE AUTO 0.76 K/uL (0.00-0.80); MONOCYTES PERCENT AUTO 7.8 % (0.0-8.0); NEUTROPHILS ABSOLUTE AUTO 7.2 K/uL (1.8-7.7); NEUTROPHILS PERCENT AUTO 73.5 % (41.0-71.0); PLATELET COUNT,PLT 67 K/uL (150-400); RED BLOOD CELL COUNT 3.71 M/uL (4.52-5.90); WHITE BLOOD CELL COUNT,WBC 9.74 K/uL (3.9-11.3)
[2023-07-06 06:43] LABS: A/G RATIO 0.8 (0.9-1.6); ALBUMIN 2.6 g/dL (3.4-5.0); BILIRUBIN TOTAL 0.7 mg/dL (0.2-1.0); CALCIUM 8.6 mg/dL (8.5-10.1); CARBON DIOXIDE,CO2 24.4 mmol/L (21.0-32.0); CREATININE 1.2 mg/dL (0.8-1.3); EST CRCL DRUG DOSING (CG) 78.14 mL/min; MAGNESIUM 1.6 mg/dL (1.8-2.4); POTASSIUM,K 2.9 mmol/L (3.5-5.1); PROTEIN TOTAL,TP 5.8 g/dL (6.4-8.2)
[2023-07-06] MEDS ORDERED: Potassium Chloride 20 MEQ Tab.ER PO ONE (07:15)
[2023-07-06] MEDS ORDERED: Magnesium Sulfate/Water 2 GM in Premix Bag 1 BAG IV ONE (07:19)
[2023-07-06] MEDS: Potassium Chloride 100 ML IV SCH ×2 (08:28→10:29)
[2023-07-06] MEDS: Pantoprazole 40 MG in Sodium Chloride 0.9% 10 ML IVPUSH SCH (12:21)
[2023-07-07] MEDS: Piperacillin/Tazobactam 3.375 GM in Sodium Chloride 0.9% 100 ML IV SCH ×3 (05:11→21:19)
[2023-07-07 05:44] LABS: BASOPHILS ABSOLUTE AUTO 0.04 K/uL (0.00-0.20); BASOPHILS PERCENT AUTO 0.7 % (0.0-1.0); EOSINOPHILS ABSOLUTE AUTO 0.14 K/uL (0.00-0.45); EOSINOPHILS PERCENT AUTO 2.5 % (0.0-6.0); HEMATOCRIT 32.6 % (42.0-52.0); HEMOGLOBIN 11.1 g/dL (14.0-18.0); IMMATURE GRAN ABSOLUTE AUTO 0.04 K/uL (0.00-0.05); IMMATURE GRAN PERCENT AUTO 0.7 % (0.0-0.4); LYMPHOCYTES ABSOLUTE AUTO 1.09 K/uL (1.00-4.80); LYMPHOCYTES PERCENT AUTO 19.1 % (24.0-44.0); MEAN CORPUSCULAR HEMOGLOBIN 31.7 pg (28.0-32.0); MEAN CORPUSCULAR VOLUME 93.1 fL (83.0-99.0); MEAN PLATELET VOLUME 10.5 fL (9.4-12.4); MONOCYTES ABSOLUTE AUTO 0.51 K/uL (0.00-0.80); MONOCYTES PERCENT AUTO 8.9 % (0.0-8.0); NEUTROPHILS ABSOLUTE AUTO 3.89 K/uL (1.80-7.70); NEUTROPHILS PERCENT AUTO 68.1 % (41.0-71.0); PLATELET COUNT,PLT 69 K/uL (150-400); WHITE BLOOD CELL COUNT,WBC 5.71 K/uL (3.9-11.3)
[2023-07-07 06:06] LABS: CALCIUM 8.3 mg/dL (8.5-10.1); CARBON DIOXIDE,CO2 25.6 mmol/L (21.0-32.0); EST CRCL DRUG DOSING (CG) 93.77 mL/min; MAGNESIUM 1.8 mg/dL (1.8-2.4); POTASSIUM,K 3.2 mmol/L (3.5-5.1); VANCOMYCIN RANDOM 23.5 ug/mL
[2023-07-07] MEDS ORDERED: Potassium Chloride 20 MEQ Tab.ER PO ONE (07:05)
[2023-07-07] MEDS: Pantoprazole 40 MG in Sodium Chloride 0.9% 10 ML IVPUSH SCH (07:33)
[2023-07-07] MEDS: Lactated Ringers 1,000 ML IV SCH ×2 (11:20→23:24)
[2023-07-08] MEDS: Piperacillin/Tazobactam 3.375 GM in Sodium Chloride 0.9% 100 ML IV SCH (04:30)
[2023-07-08] MEDS: Pantoprazole 40 MG in Sodium Chloride 0.9% 10 ML IVPUSH SCH (06:34)
[2023-07-08 06:54] LABS: BASOPHILS ABSOLUTE AUTO 0.05 K/uL (0.00-0.20); BASOPHILS PERCENT AUTO 0.9 % (0.0-1.0); EOSINOPHILS ABSOLUTE AUTO 0.22 K/uL (0.00-0.45); EOSINOPHILS PERCENT AUTO 3.8 % (0.0-6.0); HEMATOCRIT 34.2 % (42.0-52.0); HEMOGLOBIN 11.7 g/dL (14.0-18.0); IMMATURE GRAN ABSOLUTE AUTO 0.09 K/uL (0.00-0.05); IMMATURE GRAN PERCENT AUTO 1.5 % (0.0-0.4); LYMPHOCYTES PERCENT AUTO 25.6 % (24.0-44.0); MEAN CORPUSCULAR HGB CONC 34.2 g/dL (32.0-36.0); MEAN CORPUSCULAR VOLUME 93.4 fL (83.0-99.0); MEAN PLATELET VOLUME 10.6 fL (9.4-12.4); MONOCYTES ABSOLUTE AUTO 0.75 K/uL (0.00-0.80); MONOCYTES PERCENT AUTO 12.8 % (0.0-8.0); NEUTROPHILS ABSOLUTE AUTO 3.25 K/uL (1.80-7.70); NEUTROPHILS PERCENT AUTO 55.4 % (41.0-71.0); PLATELET COUNT,PLT 105 K/uL (150-400); RED BLOOD CELL COUNT 3.66 M/uL (4.52-5.90); WHITE BLOOD CELL COUNT,WBC 5.86 K/uL (3.9-11.3)
[2023-07-08 07:08] LABS: A/G RATIO 0.9 (0.9-1.6); ALBUMIN 2.6 g/dL (3.4-5.0); BILIRUBIN TOTAL 0.4 mg/dL (0.2-1.0); CALCIUM 8.5 mg/dL (8.5-10.1); CREATININE 0.9 mg/dL (0.8-1.3); EST CRCL DRUG DOSING (CG) 104.19 mL/min; POTASSIUM,K 3.7 mmol/L (3.5-5.1); PROTEIN TOTAL,TP 5.5 g/dL (6.4-8.2)
[2023-07-08] MEDS ORDERED: VANCOmycin 1.5 GM/300 ML 1.5 GM in Premix Bag 1 BAG IV SCH (12:00)
== END 2023-07-08 11:30 | disposition home or self-care (01) | DRG 698 ==
LOC: MW.ED 16:37 → OBSVTOIN 21:23 → MW.MS 21:23
PROVIDERS: ADMIT Family Medicine; ATTEND Family Medicine
PROC: 0T2BX0Z Change Drainage Device in Bladder, External Approach (ICD-10-PCS; principal; 2023-07-05)
PROC: 3E03329 Introduction of Other Anti-infective into Peripheral Vein, Percutaneous Approach (ICD-10-PCS; 2023-07-05)
DX: T83.511A Infection and inflammatory reaction due to indwelling urethral catheter, initial encounter (principal); A41.9 Sepsis, unspecified organism; R65.20 Severe sepsis without septic shock; E87.1 Hypo-osmolality and hyponatremia; N17.9 Acute kidney failure, unspecified; N13.6 Pyonephrosis; Z20.822 Contact with and (suspected) exposure to COVID-19; K21.9 Gastro-esophageal reflux disease without esophagitis; F17.210 Nicotine dependence, cigarettes, uncomplicated; D69.6 Thrombocytopenia, unspecified; N40.0 Benign prostatic hyperplasia without lower urinary tract symptoms; Y84.6 Urinary catheterization as the cause of abnormal reaction of the patient, or of later complication, without mention of misadventure at the time of the procedure; R33.9 Retention of urine, unspecified; N21.0 Calculus in bladder; N32.89 Other specified disorders of bladder; Z91.040 Latex allergy status; Z79.899 Other long term (current) drug therapy; Z86.16 Personal history of COVID-19; Z87.442 Personal history of urinary calculi
CPT/HCPCS: 0240U; 36415; 74177; 74177-26; 80048; 80053; 80202; 81001; 83605; 83690; 83735; 85025; 85610; 87040; 87086; 96361; 96365; 99223; 99232; 99239; 99285; 99285-25; A9270-GY; C9113; J0696; J2543; J3370; J3475; J3480; J3490; J7030; J7050; J7120; Q9967

== ENCOUNTER 2023-07-25 13:37 | Emergency (ER) | payer MEDICAID ==
[2023-07-25] MEDS ORDERED: Acetaminophen/HYDROcodone 325-5 MG Tab PO ONE (14:56)
[2023-07-25 15:12] LABS: BASOPHILS ABSOLUTE AUTO 0.06 K/uL (0.00-0.20); BASOPHILS PERCENT AUTO 0.9 % (0.0-1.0); EOSINOPHILS ABSOLUTE AUTO 0.32 K/uL (0.00-0.45); EOSINOPHILS PERCENT AUTO 4.8 % (0.0-6.0); HEMATOCRIT 43.7 % (42.0-52.0); HEMOGLOBIN 14.8 g/dL (14.0-18.0); IMMATURE GRAN ABSOLUTE AUTO 0.02 K/uL (0.00-0.05); IMMATURE GRAN PERCENT AUTO 0.3 % (0.0-0.4); LYMPHOCYTES ABSOLUTE AUTO 1.23 K/uL (1.00-4.80); LYMPHOCYTES PERCENT AUTO 18.5 % (24.0-44.0); MEAN CORPUSCULAR HEMOGLOBIN 32.4 pg (28.0-32.0); MEAN CORPUSCULAR HGB CONC 33.9 g/dL (32.0-36.0); MEAN CORPUSCULAR VOLUME 95.6 fL (83.0-99.0); MEAN PLATELET VOLUME 9.4 fL (9.4-12.4); MONOCYTES ABSOLUTE AUTO 0.67 K/uL (0.00-0.80); MONOCYTES PERCENT AUTO 10.1 % (0.0-8.0); NEUTROPHILS ABSOLUTE AUTO 4.35 K/uL (1.80-7.70); NEUTROPHILS PERCENT AUTO 65.4 % (41.0-71.0); PLATELET COUNT,PLT 233 K/uL (150-400); RED BLOOD CELL COUNT 4.57 M/uL (4.52-5.90); WHITE BLOOD CELL COUNT,WBC 6.65 K/uL (3.9-11.3)
[2023-07-25 15:34] LABS: A/G RATIO 0.9 (0.9-1.6); ALBUMIN 3.3 g/dL (3.4-5.0); BILIRUBIN TOTAL 0.8 mg/dL (0.2-1.0); CALCIUM 9.2 mg/dL (8.5-10.1); CREATININE 1.1 mg/dL (0.8-1.3); EST CRCL DRUG DOSING (CG) 85.24 mL/min; POTASSIUM,K 4.5 mmol/L (3.5-5.1); PROTEIN TOTAL,TP 7.1 g/dL (6.4-8.2)
[2023-07-25 16:00] LABS: APPEARANCE,URINE CLOUDY; GLUCOSE,URINE NEGATIVE (NEGATIVE); KETONES,URINE TRACE mg/dL (NEGATIVE); LEUKOCYTE ESTERASE,URINE SMALL (NEGATIVE); NITRITE,URINE POSITIVE (NEGATIVE); OCCULT BLOOD,URINE MODERATE (NEGATIVE); PH,URINE 6.5 (5.0-8.0); PROTEIN,URINE 100 mg/dL (NEGATIVE)
[2023-07-25 16:02] LABS: BILIRUBIN,URINE SMALL (NEGATIVE); COLOR,URINE DARK YELLOW
[2023-07-25 16:12] LABS: BACTERIA,URINE 1+ (NEGATIVE); EPITHELIAL CELLS,URINE FEW (NONE-FEW); RBC,URINE TOO NUMEROUS TO CT (0-2/HPF); WBC,URINE 20-30 (0-5/HPF)
== END 2023-07-25 16:33 | disposition home or self-care (01) ==
LOC: MW.ED 13:37
DX: T83.511A Infection and inflammatory reaction due to indwelling urethral catheter, initial encounter (principal); N39.0 Urinary tract infection, site not specified; K21.9 Gastro-esophageal reflux disease without esophagitis; Z86.16 Personal history of COVID-19; Z91.040 Latex allergy status; Z79.899 Other long term (current) drug therapy
CPT/HCPCS: 36415; 51702; 80053; 81001; 85025; 87086; 99283; A9270

== ENCOUNTER 2023-08-13 22:47 | Observation (INO) | payer MEDICAID ==
[2023-08-13] MEDS ORDERED: Sodium Chloride 0.9% 10 ML Syringe FLUSH PRN (22:57)
[2023-08-13] MEDS ORDERED: Sodium Chloride 0.9% 1,000 ML IV ONE ×2 (22:57→22:58)
[2023-08-13] MEDS ORDERED: Sodium Chloride 0.9% 2.5 ML Syringe FLUSH PRN (22:57)
[2023-08-13 23:14] LABS: APPEARANCE,URINE CLOUDY; BILIRUBIN,URINE NEGATIVE (NEGATIVE); COLOR,URINE YELLOW; GLUCOSE,URINE NEGATIVE (NEGATIVE); KETONES,URINE 15 mg/dL (NEGATIVE); LEUKOCYTE ESTERASE,URINE MODERATE (NEGATIVE); NITRITE,URINE NEGATIVE (NEGATIVE); OCCULT BLOOD,URINE LARGE (NEGATIVE); PROTEIN,URINE 100 mg/dL (NEGATIVE)
[2023-08-13 23:24] LABS: BACTERIA,URINE 4+ (NEGATIVE); EPITHELIAL CELLS,URINE FEW (NONE-FEW); RBC,URINE TOO NUMEROUS TO CT (0-2/HPF)
[2023-08-13 23:41] LABS: BASOPHILS ABSOLUTE AUTO 0.07 K/uL (0.00-0.20); EOSINOPHILS ABSOLUTE AUTO 0.18 K/uL (0.00-0.45); EOSINOPHILS PERCENT AUTO 2.5 % (0.0-6.0); HEMATOCRIT 50.1 % (42.0-52.0); HEMOGLOBIN 17.1 g/dL (14.0-18.0); IMMATURE GRAN ABSOLUTE AUTO 0.02 K/uL (0.00-0.05); IMMATURE GRAN PERCENT AUTO 0.3 % (0.0-0.4); LYMPHOCYTES ABSOLUTE AUTO 2.14 K/uL (1.00-4.80); LYMPHOCYTES PERCENT AUTO 29.6 % (24.0-44.0); MEAN CORPUSCULAR HEMOGLOBIN 31.6 pg (28.0-32.0); MEAN CORPUSCULAR HGB CONC 34.1 g/dL (32.0-36.0); MEAN CORPUSCULAR VOLUME 92.6 fL (83.0-99.0); MEAN PLATELET VOLUME 9.1 fL (9.4-12.4); MONOCYTES ABSOLUTE AUTO 0.28 K/uL (0.00-0.80); MONOCYTES PERCENT AUTO 3.9 % (0.0-8.0); NEUTROPHILS ABSOLUTE AUTO 4.55 K/uL (1.80-7.70); NEUTROPHILS PERCENT AUTO 62.7 % (41.0-71.0); PLATELET COUNT,PLT 284 K/uL (150-400); RED BLOOD CELL COUNT 5.41 M/uL (4.52-5.90); WHITE BLOOD CELL COUNT,WBC 7.24 K/uL (3.9-11.3)
[2023-08-14 00:04] LABS: CALCIUM 9.1 mg/dL (8.5-10.1); CARBON DIOXIDE,CO2 21.9 mmol/L (21.0-32.0); CREATININE 1.2 mg/dL (0.8-1.3); EST CRCL DRUG DOSING (CG) 78.14 mL/min; POTASSIUM,K 3.6 mmol/L (3.5-5.1)
[2023-08-14] MEDS ORDERED: cefTRIAXone 1 GM in Sodium Chloride 0.9% 50 ML IV ONE (00:06)
[2023-08-14 00:13] LABS: LACTIC ACID 4.6 mmol/L (0.4-2.0)
[2023-08-14] MEDS ORDERED: Sodium Chloride 0.9% 1,200 ML IV ONE (00:43)
[2023-08-14 08:26] LABS: LACTIC ACID 3.5 mmol/L (0.4-2.0)
[2023-08-14] MEDS: Finasteride 5 MG Tab PO SCH (08:43)
[2023-08-14] MEDS ORDERED: Tamsulosin 0.4 MG Cap.ER PO SCH (09:00)
[2023-08-14] MEDS: Lactated Ringers 1,000 ML IV SCH ×2 (09:02→17:50)
[2023-08-14] MEDS ORDERED: LORazepam 2 MG/ML SDV IVPUSH PRN (09:28)
[2023-08-14] MEDS: Enoxaparin 40 MG/0.4 ML Syringe SUBCUT SCH (09:45)
[2023-08-14] MEDS ORDERED: Sodium Chloride 0.9% 1,000 ML IV ONE (10:56)
[2023-08-14] MEDS: Thiamine 200 MG/2 ML MDV IVPUSH SCH (12:14)
[2023-08-14] MEDS: Folic Acid 1 MG/0.2 ML UD Syringe IV SCH (12:15)
[2023-08-15] MEDS ORDERED: cefTRIAXone 1 GM in Sodium Chloride 0.9% 50 ML IV SCH (00:01)
[2023-08-15 06:13] LABS: BASOPHILS ABSOLUTE AUTO 0.02 K/uL (0.00-0.20); BASOPHILS PERCENT AUTO 0.4 % (0.0-1.0); EOSINOPHILS ABSOLUTE AUTO 0.28 K/uL (0.00-0.45); EOSINOPHILS PERCENT AUTO 5.6 % (0.0-6.0); HEMATOCRIT 38.4 % (42.0-52.0); HEMOGLOBIN 13.5 g/dL (14.0-18.0); IMMATURE GRAN ABSOLUTE AUTO 0.01 K/uL (0.00-0.05); IMMATURE GRAN PERCENT AUTO 0.2 % (0.0-0.4); LYMPHOCYTES ABSOLUTE AUTO 1.35 K/uL (1.00-4.80); LYMPHOCYTES PERCENT AUTO 26.9 % (24.0-44.0); MEAN CORPUSCULAR HEMOGLOBIN 32.1 pg (28.0-32.0); MEAN CORPUSCULAR HGB CONC 35.2 g/dL (32.0-36.0); MEAN CORPUSCULAR VOLUME 91.4 fL (83.0-99.0); MEAN PLATELET VOLUME 9.6 fL (9.4-12.4); NEUTROPHILS ABSOLUTE AUTO 2.96 K/uL (1.80-7.70); NEUTROPHILS PERCENT AUTO 58.9 % (41.0-71.0); PLATELET COUNT,PLT 170 K/uL (150-400); WHITE BLOOD CELL COUNT,WBC 5.02 K/uL (3.9-11.3)
[2023-08-15 06:41] LABS: ALBUMIN 2.8 g/dL (3.4-5.0); BILIRUBIN TOTAL 0.7 mg/dL (0.2-1.0); CALCIUM 8.5 mg/dL (8.5-10.1); CARBON DIOXIDE,CO2 26.7 mmol/L (21.0-32.0); CREATININE 0.8 mg/dL (0.8-1.3); EST CRCL DRUG DOSING (CG) 117.21 mL/min; MAGNESIUM 1.6 mg/dL (1.8-2.4); POTASSIUM,K 3.3 mmol/L (3.5-5.1); PROTEIN TOTAL,TP 6.1 g/dL (6.4-8.2)
[2023-08-15 06:42] LABS: A/G RATIO 0.9 (0.9-1.6)
[2023-08-15] MEDS ORDERED: Potassium Chloride 20 MEQ Tab.ER PO ONE (06:56)
[2023-08-15] MEDS ORDERED: Magnesium Sulfate/Water 2 GM in Premix Bag 1 BAG IV ONE ×2 (06:57→08:45)
[2023-08-15] MEDS: Lactated Ringers 1,000 ML IV SCH (07:15)
[2023-08-15] MEDS ORDERED: Acetaminophen 325 MG Tab PO PRN (08:07)
[2023-08-15] MEDS ORDERED: Pantoprazole 40 MG in Sodium Chloride 0.9% 10 ML IVPUSH SCH (08:15)
[2023-08-15] MEDS ORDERED: Tamsulosin 0.4 MG Cap.ER PO SCH (08:30)
[2023-08-15] MEDS: Folic Acid 1 MG/0.2 ML UD Syringe IV SCH (08:31)
[2023-08-15] MEDS: Enoxaparin 40 MG/0.4 ML Syringe SUBCUT SCH (08:31)
[2023-08-15] MEDS: Thiamine 200 MG/2 ML MDV IVPUSH SCH (08:32)
[2023-08-15] MEDS: Finasteride 5 MG Tab PO SCH (08:32)
[2023-08-15] MEDS ORDERED: Phenazopyridine 200 MG Tab PO ONE (09:23)
== END 2023-08-15 12:45 | disposition home or self-care (01) ==
LOC: MW.ED 22:47 → MW.MS 08-14 03:44
PROVIDERS: ADMIT Internal Medicine; ATTEND Internal Medicine
DX: N39.0 Urinary tract infection, site not specified (principal); F10.929 Alcohol use, unspecified with intoxication, unspecified; R33.8 Other retention of urine; N40.0 Benign prostatic hyperplasia without lower urinary tract symptoms; N20.0 Calculus of kidney; F17.210 Nicotine dependence, cigarettes, uncomplicated; K21.9 Gastro-esophageal reflux disease without esophagitis; Z79.899 Other long term (current) drug therapy; Z91.040 Latex allergy status
CPT/HCPCS: 36415; 74176; 80048; 80053; 80307; 81001; 83605; 83735; 85025; 87040; 87086; 96361; 96365; 99284; A9270; C9113; J0696; J1650; J2060; J3411; J3475; J3490; J7030; J7120; 96367; 96372; 96375; 96376; 99222; 99239; 99283; G0378

== ENCOUNTER 2023-09-09 15:36 | Emergency (ER) | payer SELFPAY ==
[2023-09-09] MEDS ORDERED: Sodium Chloride 0.9% 1,000 ML IV ONE ×2 (15:39→16:49)
[2023-09-09 16:42] LABS: LACTIC ACID 2.6 mmol/L (0.4-2.0)
[2023-09-09 16:45] LABS: A/G RATIO 0.6 (0.9-1.6); ALBUMIN 2.8 g/dL (3.4-5.0); BILIRUBIN TOTAL 0.8 mg/dL (0.2-1.0); CALCIUM 9.7 mg/dL (8.5-10.1); CARBON DIOXIDE,CO2 22.5 mmol/L (21.0-32.0); CREATININE 11.6 mg/dL (0.8-1.3); EST CRCL DRUG DOSING (CG) 8.08 mL/min; PROTEIN TOTAL,TP 7.7 g/dL (6.4-8.2)
[2023-09-09 17:04] LABS: CORONAVIRUS COVID-19 NAA NEGATIVE (NEGATIVE); INFLUENZA A NAA NEGATIVE (NEGATIVE); INFLUENZA B NAA NEGATIVE (NEGATIVE)
[2023-09-09 17:19] LABS: BASOPHILS ABSOLUTE AUTO 0.06 K/uL (0.00-0.20); BASOPHILS PERCENT AUTO 0.3 % (0.0-1.0); EOSINOPHILS ABSOLUTE AUTO 0.04 K/uL (0.00-0.45); EOSINOPHILS PERCENT AUTO 0.2 % (0.0-6.0); HEMATOCRIT 38.5 % (42.0-52.0); HEMOGLOBIN 13.5 g/dL (14.0-18.0); IMMATURE GRAN ABSOLUTE AUTO 0.31 K/uL (0.00-0.05); IMMATURE GRAN PERCENT AUTO 1.6 % (0.0-0.4); LYMPHOCYTES ABSOLUTE AUTO 0.51 K/uL (1.00-4.80); LYMPHOCYTES PERCENT AUTO 2.6 % (24.0-44.0); MEAN CORPUSCULAR HEMOGLOBIN 32.2 pg (28.0-32.0); MEAN CORPUSCULAR HGB CONC 35.1 g/dL (32.0-36.0); MEAN CORPUSCULAR VOLUME 91.9 fL (83.0-99.0); MEAN PLATELET VOLUME 8.9 fL (9.4-12.4); MONOCYTES ABSOLUTE AUTO 1.27 K/uL (0.00-0.80); MONOCYTES PERCENT AUTO 6.4 % (0.0-8.0); NEUTROPHILS PERCENT AUTO 88.9 % (41.0-71.0); PLATELET COUNT,PLT 255 K/uL (150-400); RED BLOOD CELL COUNT 4.19 M/uL (4.52-5.90); WHITE BLOOD CELL COUNT,WBC 19.69 K/uL (3.9-11.3)
[2023-09-09] MEDS ORDERED: VANCOmycin 2 GM/400 ML 2 GM in Premix Bag 1 BAG IV ONE (17:30)
[2023-09-09 17:32] LABS: INR 1.03 (0.86-1.11)
[2023-09-09 18:30] LABS: BILIRUBIN,URINE NEGATIVE (NEGATIVE); GLUCOSE,URINE NEGATIVE (NEGATIVE); KETONES,URINE NEGATIVE (NEGATIVE); LEUKOCYTE ESTERASE,URINE MODERATE (NEGATIVE); NITRITE,URINE POSITIVE (NEGATIVE); OCCULT BLOOD,URINE LARGE (NEGATIVE); PH,URINE 8.5 (5.0-8.0); PROTEIN,URINE 100 mg/dL (NEGATIVE)
[2023-09-09 18:46] LABS: APPEARANCE,URINE SLT CLOUDY; COLOR,URINE AMBER
[2023-09-09 18:47] LABS: AMORPHOUS SEDIMENT,URINE FEW (NEGATIVE); BACTERIA,URINE FEW (NEGATIVE); EPITHELIAL CELLS,URINE RARE (NONE-FEW)
[2023-09-09] MEDS ORDERED: Cefepime 2 GM Vial IVPUSH ONE (19:36)
[2023-09-09] MEDS ORDERED: Cefepime 1 GM in Sodium Chloride 0.9% 50 ML IV ONE (19:56)
[2023-09-09 21:20] LABS: A/G RATIO 0.5 (0.9-1.6); ALBUMIN 2.1 g/dL (3.4-5.0); BILIRUBIN TOTAL 0.5 mg/dL (0.2-1.0); CALCIUM 8.7 mg/dL (8.5-10.1); CARBON DIOXIDE,CO2 22.3 mmol/L (21.0-32.0); CREATININE 10.6 mg/dL (0.8-1.3); EST CRCL DRUG DOSING (CG) 8.85 mL/min; POTASSIUM,K 3.7 mmol/L (3.5-5.1); PROTEIN TOTAL,TP 6.2 g/dL (6.4-8.2)
[2023-09-09] MEDS ORDERED: Sodium Chloride 0.9% 1,000 ML IV SCH (22:00)
== END 2023-09-10 03:00 ==
LOC: MW.ED 15:36
DX: N39.0 Urinary tract infection, site not specified (principal); L89.302 Pressure ulcer of unspecified buttock, stage 2; N28.9 Disorder of kidney and ureter, unspecified; K21.9 Gastro-esophageal reflux disease without esophagitis; Z86.16 Personal history of COVID-19; Z79.899 Other long term (current) drug therapy; Z91.040 Latex allergy status
CPT/HCPCS: 0240U; 36415; 51702; 71045; 74176; 80053; 81001; 83605; 85025; 85610; 85730; 87040; 87086; 93005; 96361; 96365; 96366; 96367; 99285; J0692; J3370; J3490; J7030; 93010; 99284

== ENCOUNTER 2023-09-28 17:12 | Emergency (ER) | payer SELFPAY ==
[2023-09-28] MEDS ORDERED: Sodium Chloride 0.9% 1,000 ML IV STA (17:18)
[2023-09-28 18:08] LABS: CORONAVIRUS COVID-19 NAA NEGATIVE (NEGATIVE); INFLUENZA A NAA NEGATIVE (NEGATIVE); INFLUENZA B NAA NEGATIVE (NEGATIVE); RESPIRATORY SYNCYTIAL VIR NAA NEGATIVE (NEGATIVE)
[2023-09-28 19:17] LABS: BASOPHILS ABSOLUTE AUTO 0.03 K/uL (0.00-0.20); BASOPHILS PERCENT AUTO 0.3 % (0.0-1.0); EOSINOPHILS ABSOLUTE AUTO 0.28 K/uL (0.00-0.45); EOSINOPHILS PERCENT AUTO 2.6 % (0.0-6.0); HEMATOCRIT 42.8 % (42.0-52.0); HEMOGLOBIN 14.7 g/dL (14.0-18.0); IMMATURE GRAN ABSOLUTE AUTO 0.04 K/uL (0.00-0.05); IMMATURE GRAN PERCENT AUTO 0.4 % (0.0-0.4); LYMPHOCYTES ABSOLUTE AUTO 1.93 K/uL (1.00-4.80); MEAN CORPUSCULAR HGB CONC 34.3 g/dL (32.0-36.0); MEAN CORPUSCULAR VOLUME 93.2 fL (83.0-99.0); MONOCYTES ABSOLUTE AUTO 0.62 K/uL (0.00-0.80); MONOCYTES PERCENT AUTO 5.8 % (0.0-8.0); NEUTROPHILS ABSOLUTE AUTO 7.84 K/uL (1.80-7.70); NEUTROPHILS PERCENT AUTO 72.9 % (41.0-71.0); PLATELET COUNT,PLT 103 K/uL (150-400); RED BLOOD CELL COUNT 4.59 M/uL (4.52-5.90); WHITE BLOOD CELL COUNT,WBC 10.74 K/uL (3.9-11.3)
[2023-09-28 19:40] LABS: A/G RATIO 0.7 (0.9-1.6); ALBUMIN 3.1 g/dL (3.4-5.0); BILIRUBIN TOTAL 0.3 mg/dL (0.2-1.0); CALCIUM 8.3 mg/dL (8.5-10.1); CREATININE 1.2 mg/dL (0.8-1.3); EST CRCL DRUG DOSING (CG) 78.14 mL/min; POTASSIUM,K 3.4 mmol/L (3.5-5.1); PROTEIN TOTAL,TP 7.4 g/dL (6.4-8.2)
[2023-09-28 20:19] LABS: BILIRUBIN,URINE NEGATIVE (NEGATIVE); COLOR,URINE YELLOW; GLUCOSE,URINE NEGATIVE (NEGATIVE); KETONES,URINE NEGATIVE (NEGATIVE); LEUKOCYTE ESTERASE,URINE TRACE (NEGATIVE); NITRITE,URINE NEGATIVE (NEGATIVE); OCCULT BLOOD,URINE MODERATE (NEGATIVE); PH,URINE 5.5 (5.0-8.0); PROTEIN,URINE 100 mg/dL (NEGATIVE); UROBILINOGEN,URINE 0.2 EU/dL (<2.0)
[2023-09-28 20:27] LABS: APPEARANCE,URINE SLT CLOUDY
[2023-09-28 20:28] LABS: BACTERIA,URINE FEW (NEGATIVE); EPITHELIAL CELLS,URINE RARE (NONE-FEW)
== END 2023-09-28 21:16 | disposition home or self-care (01) ==
LOC: MW.ED 17:12
DX: R33.9 Retention of urine, unspecified (principal); N40.1 Benign prostatic hyperplasia with lower urinary tract symptoms; Z46.6 Encounter for fitting and adjustment of urinary device; Z76.0 Encounter for issue of repeat prescription; Z20.822 Contact with and (suspected) exposure to COVID-19; Z86.16 Personal history of COVID-19; Z91.040 Latex allergy status
CPT/HCPCS: 0241U; 36415; 51702; 80053; 81001; 83690; 85025; 87086; 96360; 99284; J7030

== ENCOUNTER 2023-10-15 18:27 | Emergency (ER) | payer SELFPAY ==
[2023-10-15] MEDS ORDERED: Sodium Chloride 0.9% 2.5 ML Syringe FLUSH PRN (18:53)
[2023-10-15] MEDS ORDERED: Sodium Chloride 0.9% 10 ML Syringe FLUSH PRN (18:53)
[2023-10-15] MEDS ORDERED: Sodium Chloride 0.9% 1,000 ML IV ONE ×2 (19:39→20:39)
[2023-10-15 19:41] LABS: BASOPHILS ABSOLUTE AUTO 0.06 K/uL (0.00-0.20); BASOPHILS PERCENT AUTO 0.4 % (0.0-1.0); EOSINOPHILS ABSOLUTE AUTO 0.08 K/uL (0.00-0.45); EOSINOPHILS PERCENT AUTO 0.6 % (0.0-6.0); HEMATOCRIT 39.1 % (42.0-52.0); HEMOGLOBIN 13.4 g/dL (14.0-18.0); IMMATURE GRAN ABSOLUTE AUTO 0.11 K/uL (0.00-0.05); IMMATURE GRAN PERCENT AUTO 0.8 % (0.0-0.4); LYMPHOCYTES PERCENT AUTO 8.4 % (24.0-44.0); MEAN CORPUSCULAR HEMOGLOBIN 31.9 pg (28.0-32.0); MEAN CORPUSCULAR HGB CONC 34.3 g/dL (32.0-36.0); MEAN CORPUSCULAR VOLUME 93.1 fL (83.0-99.0); MEAN PLATELET VOLUME 9.5 fL (9.4-12.4); NEUTROPHILS ABSOLUTE AUTO 11.92 K/uL (1.80-7.70); NEUTROPHILS PERCENT AUTO 82.8 % (41.0-71.0); PLATELET COUNT,PLT 378 K/uL (150-400); WHITE BLOOD CELL COUNT,WBC 14.37 K/uL (3.9-11.3)
[2023-10-15] MEDS ORDERED: Iopamidol 755 MG/ML 500 ML Multipack Bottle IVPUSH ONE (19:44)
[2023-10-15 20:04] LABS: LACTIC ACID 1.3 mmol/L (0.4-2.0)
[2023-10-15 20:11] LABS: A/G RATIO 0.7 (0.9-1.6); ALBUMIN 2.6 g/dL (3.4-5.0); BILIRUBIN TOTAL 0.7 mg/dL (0.2-1.0); CARBON DIOXIDE,CO2 28.4 mmol/L (21.0-32.0); EST CRCL DRUG DOSING (CG) 93.77 mL/min; PROTEIN TOTAL,TP 6.4 g/dL (6.4-8.2)
[2023-10-15] MEDS ORDERED: Cefepime 1 GM in Sodium Chloride 0.9% 50 ML IV ONE (20:21)
[2023-10-15] MEDS ORDERED: VANCOmycin 1.25 GM/250 ML 1.25 GM in Premix Bag 1 BAG IV SCH (21:00)
[2023-10-15 21:22] LABS: APPEARANCE,URINE SLT CLOUDY; BILIRUBIN,URINE NEGATIVE (NEGATIVE); COLOR,URINE YELLOW; GLUCOSE,URINE NEGATIVE (NEGATIVE); KETONES,URINE NEGATIVE (NEGATIVE); LEUKOCYTE ESTERASE,URINE SMALL (NEGATIVE); NITRITE,URINE NEGATIVE (NEGATIVE); OCCULT BLOOD,URINE MODERATE (NEGATIVE); PH,URINE 7.5 (5.0-8.0); PROTEIN,URINE TRACE mg/dL (NEGATIVE); UROBILINOGEN,URINE 0.2 EU/dL (<2.0)
[2023-10-15] MEDS: Potassium Chloride 100 ML IV SCH ×2 (21:22→23:43)
[2023-10-15 21:41] LABS: EPITHELIAL CELLS,URINE FEW (NONE-FEW)
[2023-10-15 21:42] LABS: BACTERIA,URINE FEW (NEGATIVE); CALCIUM OXALATE CRYSTALS,URINE OCCASIONAL (NEGATIVE); MUCUS,URINE LIGHT (NONE-MOD)
== END 2023-10-16 01:00 ==
LOC: MW.ED 18:27
DX: A41.9 Sepsis, unspecified organism (principal); E87.6 Hypokalemia; K56.1 Intussusception; T83.511A Infection and inflammatory reaction due to indwelling urethral catheter, initial encounter
CPT/HCPCS: 36415; 51702; 70450; 71045; 72148; 74177; 80053; 81001; 83605; 85025; 87040; 87086; 96365; 96366; 96367; 99285; J0692; J3370; J3480; J3490; J7030; Q9967

== ENCOUNTER 2023-11-22 08:47 | Emergency (ER) | payer MEDICAID | END 2023-11-22 09:13 | disposition home or self-care (01) | LOC: MW.ED 08:47 | DX: F32.A Depression, unspecified (principal); F10.10 Alcohol abuse, uncomplicated; Z91.040 Latex allergy status | CPT/HCPCS: 99282; 99284 ==

== ENCOUNTER 2024-01-04 00:06 | Emergency (ER) | payer MEDICAID ==
[2024-01-04] MEDS: Sodium Chloride 0.9% 10 ML Syringe FLUSH PRN (00:48)
[2024-01-04] MEDS: Sodium Chloride 0.9% 2.5 ML Syringe FLUSH PRN (00:48)
[2024-01-04] MEDS: Sodium Chloride 0.9% 1,000 ML IV ONE (00:49)
[2024-01-04 01:02] LABS: BASOPHILS ABSOLUTE AUTO 0.08 K/uL (0.00-0.20); BASOPHILS PERCENT AUTO 0.8 % (0.0-1.0); EOSINOPHILS ABSOLUTE AUTO 0.16 K/uL (0.00-0.45); EOSINOPHILS PERCENT AUTO 1.6 % (0.0-6.0); HEMOGLOBIN 16.4 g/dL (14.0-18.0); IMMATURE GRAN ABSOLUTE AUTO 0.03 K/uL (0.00-0.05); IMMATURE GRAN PERCENT AUTO 0.3 % (0.0-0.4); LYMPHOCYTES ABSOLUTE AUTO 1.68 K/uL (1.00-4.80); LYMPHOCYTES PERCENT AUTO 16.6 % (24.0-44.0); MEAN CORPUSCULAR HEMOGLOBIN 31.5 pg (28.0-32.0); MEAN CORPUSCULAR HGB CONC 34.2 g/dL (32.0-36.0); MEAN CORPUSCULAR VOLUME 92.3 fL (83.0-99.0); MEAN PLATELET VOLUME 9.8 fL (9.4-12.4); MONOCYTES ABSOLUTE AUTO 1.39 K/uL (0.00-0.80); MONOCYTES PERCENT AUTO 13.7 % (0.0-8.0); PLATELET COUNT,PLT 246 K/uL (150-400); WHITE BLOOD CELL COUNT,WBC 10.14 K/uL (3.9-11.3)
[2024-01-04] MEDS ORDERED: Naloxone 0.4 MG/ML SDV IVPUSH PRN (01:22)
[2024-01-04 01:24] LABS: A/G RATIO 0.9 (0.9-1.6); ALBUMIN 3.5 g/dL (3.4-5.0); BILIRUBIN TOTAL 0.3 mg/dL (0.2-1.0); CARBON DIOXIDE,CO2 23.6 mmol/L (21.0-32.0); CREATININE 1.3 mg/dL (0.8-1.3); EST CRCL DRUG DOSING (CG) 65.71 mL/min; MAGNESIUM 1.8 mg/dL (1.8-2.4); PHOSPHORUS 3.1 mg/dL (2.6-4.7); POTASSIUM,K 3.9 mmol/L (3.5-5.1); PROTEIN TOTAL,TP 7.6 g/dL (6.4-8.2)
[2024-01-04] MEDS: Ondansetron 4 MG/2 ML SDV IVPUSH ONE (01:28)
[2024-01-04] MEDS: Morphine 2 MG/ML SYRINGE IVPUSH ONE (01:28)
[2024-01-04] MEDS: Lidocaine 2% Viscous Solution 15 ML UD PO ONE (01:34)
[2024-01-04] MEDS: Lidocaine 2% 11 ML Jelly Filled Syringe MUCMEM STA ×2 (01:36)
[2024-01-04 01:55] LABS: APPEARANCE,URINE CLOUDY; BILIRUBIN,URINE NEGATIVE (NEGATIVE); COLOR,URINE YELLOW; GLUCOSE,URINE NEGATIVE (NEGATIVE); KETONES,URINE NEGATIVE (NEGATIVE); LEUKOCYTE ESTERASE,URINE MODERATE (NEGATIVE); NITRITE,URINE POSITIVE (NEGATIVE); OCCULT BLOOD,URINE LARGE (NEGATIVE); PH,URINE 6.5 (5.0-8.0); PROTEIN,URINE >=300 mg/dL (NEGATIVE); UROBILINOGEN,URINE 0.2 EU/dL (<2.0)
[2024-01-04 02:04] LABS: BACTERIA,URINE FEW (NEGATIVE); EPITHELIAL CELLS,URINE NOT SEEN (NONE-FEW); RBC,URINE 85-90 (0-2/HPF); WBC,URINE 35-40 (0-5/HPF)
[2024-01-04] MEDS: Cefdinir 300 MG Cap PO ONE (02:17)
== END 2024-01-04 02:28 | disposition home or self-care (01) ==
LOC: MW.ED 00:06
DX: L24.2 Irritant contact dermatitis due to solvents (principal); Z96.0 Presence of urogenital implants; Z91.040 Latex allergy status; Z79.899 Other long term (current) drug therapy
CPT/HCPCS: 36415; 51702; 80053; 81001; 83735; 84100; 85025; 87086; 96374; 96375; 99283; A9270; J2270; J2405; J3490; J7030; 87088; 87186; 99284

== ENCOUNTER 2024-01-04 20:05 | Emergency (ER) | payer MEDICAID ==
[2024-01-04 20:43] LABS: BASOPHILS ABSOLUTE AUTO 0.08 K/uL (0.00-0.20); EOSINOPHILS ABSOLUTE AUTO 0.23 K/uL (0.00-0.45); HEMATOCRIT 44.1 % (42.0-52.0); HEMOGLOBIN 14.8 g/dL (14.0-18.0); IMMATURE GRAN ABSOLUTE AUTO 0.02 K/uL (0.00-0.05); IMMATURE GRAN PERCENT AUTO 0.3 % (0.0-0.4); LYMPHOCYTES ABSOLUTE AUTO 1.69 K/uL (1.00-4.80); MEAN CORPUSCULAR HEMOGLOBIN 31.6 pg (28.0-32.0); MEAN CORPUSCULAR HGB CONC 33.6 g/dL (32.0-36.0); MEAN CORPUSCULAR VOLUME 94.2 fL (83.0-99.0); MEAN PLATELET VOLUME 9.8 fL (9.4-12.4); MONOCYTES ABSOLUTE AUTO 0.81 K/uL (0.00-0.80); MONOCYTES PERCENT AUTO 10.5 % (0.0-8.0); NEUTROPHILS ABSOLUTE AUTO 4.85 K/uL (1.80-7.70); NEUTROPHILS PERCENT AUTO 63.2 % (41.0-71.0); PLATELET COUNT,PLT 226 K/uL (150-400); RED BLOOD CELL COUNT 4.68 M/uL (4.52-5.90); WHITE BLOOD CELL COUNT,WBC 7.68 K/uL (3.9-11.3)
[2024-01-04 21:21] LABS: ACETAMINOPHEN <2.0 ug/mL; ALANINE AMINOTRANSFERASE,ALT 22 IU/L (14-63); ALBUMIN 3.3 g/dL (3.4-5.0); ALKALINE PHOSPHATASE 82 U/L (46-116); ASPARTATE AMNIOTRANSFERASE,AST 19 IU/L (15-37); BILIRUBIN TOTAL 0.2 mg/dL (0.2-1.0); BLOOD UREA NITROGEN,BUN 16 mg/dL (7.0-18.0); CALCIUM 8.9 mg/dL (8.5-10.1); CARBON DIOXIDE,CO2 23.8 mmol/L (21.0-32.0); CHLORIDE,CL 104 mmol/L (98-107); CREATININE 1.3 mg/dL (0.8-1.3); EST CRCL DRUG DOSING (CG) 72.13 mL/min; ETHANOL BLOOD MEDICAL 226 mg/dL; GLUCOSE RANDOM 91 mg/dL (74-106); POTASSIUM,K 3.8 mmol/L (3.5-5.1); PROTEIN TOTAL,TP 7.2 g/dL (6.4-8.2); SODIUM,NA 142 mmol/L (136-148); TSH ULTRASENSITIVE 1.81 uIU/mL (0.36-3.74)
[2024-01-04 21:22] LABS: A/G RATIO 0.9 (0.9-1.6); ESTIMATED GFR 66 mL/min (>60)
[2024-01-04 21:31] LABS: AMPHETAMINES SCREEN, URINE NEGATIVE (CUTOFF=500); BARBITURATE SCREEN,URINE NEGATIVE (CUTOFF=200); BENZODIAZEPINES SCREEN,URINE NEGATIVE (CUTOFF=150); BUPRENORPHINE SCREEN,URINE NEGATIVE (CUTOFF=10); METHADONE SCREEN, URINE NEGATIVE (CUTOFF=200); METHAMPHETAMINES SCREEN, URINE NEGATIVE (CUTOFF=500); OXYCODONE SCREEN,URINE NEGATIVE (CUT0FF=100); PCP SCREEN,URINE NEGATIVE (CUTOFF=25); THC SCREEN,URINE 20 NG/ML NEGATIVE (CUTOFF=50)
== END 2024-01-05 09:39 ==
LOC: MW.ED 20:05
DX: R45.851 Suicidal ideations (principal); F10.20 Alcohol dependence, uncomplicated; Z96.0 Presence of urogenital implants; Z91.040 Latex allergy status; Z75.8 Other problems related to medical facilities and other health care
CPT/HCPCS: 36415; 80053; 80143; 80179; 80305-QW; 80307; 84443; 85025; 93005; 93010; 99285; U0002

== ENCOUNTER 2024-01-19 13:08 | Emergency (ER) | payer MEDICAID ==
[2024-01-19 13:43] LABS: BASOPHILS ABSOLUTE AUTO 0.08 K/uL (0.00-0.20); BASOPHILS PERCENT AUTO 0.7 % (0.0-1.0); EOSINOPHILS ABSOLUTE AUTO 0.15 K/uL (0.00-0.45); EOSINOPHILS PERCENT AUTO 1.3 % (0.0-6.0); HEMATOCRIT 45.6 % (42.0-52.0); HEMOGLOBIN 15.9 g/dL (14.0-18.0); IMMATURE GRAN ABSOLUTE AUTO 0.04 K/uL (0.00-0.05); IMMATURE GRAN PERCENT AUTO 0.3 % (0.0-0.4); LYMPHOCYTES ABSOLUTE AUTO 2.52 K/uL (1.00-4.80); LYMPHOCYTES PERCENT AUTO 21.4 % (24.0-44.0); MEAN CORPUSCULAR HEMOGLOBIN 31.3 pg (28.0-32.0); MEAN CORPUSCULAR HGB CONC 34.9 g/dL (32.0-36.0); MEAN CORPUSCULAR VOLUME 89.8 fL (83.0-99.0); MEAN PLATELET VOLUME 9.4 fL (9.4-12.4); MONOCYTES ABSOLUTE AUTO 1.12 K/uL (0.00-0.80); MONOCYTES PERCENT AUTO 9.5 % (0.0-8.0); NEUTROPHILS ABSOLUTE AUTO 7.87 K/uL (1.80-7.70); NEUTROPHILS PERCENT AUTO 66.8 % (41.0-71.0); PLATELET COUNT,PLT 278 K/uL (150-400); RED BLOOD CELL COUNT 5.08 M/uL (4.52-5.90); WHITE BLOOD CELL COUNT,WBC 11.78 K/uL (3.9-11.3)
[2024-01-19 14:38] LABS: A/G RATIO 0.9 (0.9-1.6); ACETAMINOPHEN <2.0 ug/mL; ALANINE AMINOTRANSFERASE,ALT 21 IU/L (14-63); ALBUMIN 3.2 g/dL (3.4-5.0); ALKALINE PHOSPHATASE 88 U/L (46-116); ASPARTATE AMNIOTRANSFERASE,AST 17 IU/L (15-37); BILIRUBIN TOTAL 0.4 mg/dL (0.2-1.0); BLOOD UREA NITROGEN,BUN 18 mg/dL (7.0-18.0); CARBON DIOXIDE,CO2 21.4 mmol/L (21.0-32.0); CHLORIDE,CL 104 mmol/L (98-107); CREATININE 1.2 mg/dL (0.8-1.3); EST CRCL DRUG DOSING (CG) 78.14 mL/min; ETHANOL BLOOD MEDICAL 283 mg/dL; GLUCOSE RANDOM 90 mg/dL (74-106); MAGNESIUM 1.9 mg/dL (1.8-2.4); POTASSIUM,K 3.4 mmol/L (3.5-5.1); PROTEIN TOTAL,TP 6.9 g/dL (6.4-8.2); SALICYLATE 5.2 mg/dL (0.0-20.0); SODIUM,NA 141 mmol/L (136-148); TSH ULTRASENSITIVE 1.36 uIU/mL (0.36-3.74)
[2024-01-19 14:43] LABS: ESTIMATED GFR 72 mL/min (>60)
[2024-01-19 15:15] LABS: APPEARANCE,URINE CLEAR; BILIRUBIN,URINE NEGATIVE (NEGATIVE); COLOR,URINE YELLOW; GLUCOSE,URINE NEGATIVE (NEGATIVE); KETONES,URINE NEGATIVE (NEGATIVE); LEUKOCYTE ESTERASE,URINE LARGE (NEGATIVE); NITRITE,URINE POSITIVE (NEGATIVE); OCCULT BLOOD,URINE MODERATE (NEGATIVE); PH,URINE >= 9.0 (5.0-8.0); PROTEIN,URINE >=300 mg/dL (NEGATIVE)
[2024-01-19 15:25] LABS: AMPHETAMINES SCREEN, URINE NEGATIVE (CUTOFF=500); BARBITURATE SCREEN,URINE NEGATIVE (CUTOFF=200); BENZODIAZEPINES SCREEN,URINE NEGATIVE (CUTOFF=150); BUPRENORPHINE SCREEN,URINE NEGATIVE (CUTOFF=10); METHADONE SCREEN, URINE NEGATIVE (CUTOFF=200); METHAMPHETAMINES SCREEN, URINE NEGATIVE (CUTOFF=500); OXYCODONE SCREEN,URINE NEGATIVE (CUT0FF=100); PCP SCREEN,URINE NEGATIVE (CUTOFF=25); THC SCREEN,URINE 20 NG/ML NEGATIVE (CUTOFF=50)
[2024-01-19 15:35] LABS: BACTERIA,URINE 3+ (NEGATIVE); EPITHELIAL CELLS,URINE FEW (NONE-FEW); TRIPLE PHOSPHATE CRYSTALS,UR MANY (NEGATIVE); WBC,URINE 20-35 (0-5/HPF)
== END 2024-01-19 18:21 | disposition home or self-care (01) ==
LOC: MW.ED 13:08
DX: F32.A Depression, unspecified (principal); F17.210 Nicotine dependence, cigarettes, uncomplicated; Z91.040 Latex allergy status; Z75.8 Other problems related to medical facilities and other health care
CPT/HCPCS: 36415; 51702; 80053; 80143; 80179; 80305-QW; 80307; 81001; 83735; 84443; 85025; 99285

== ENCOUNTER 2024-01-23 12:24 | Emergency (ER) | payer MEDICAID ==
[2024-01-23] MEDS ORDERED: Hydrochlorothiazide 12.5 MG Cap PO STA (12:53)
[2024-01-23] MEDS: Amoxicillin/Clavulanate K 875-125 MG Tab PO ONE (13:04)
[2024-01-23] MEDS: Hydrochlorothiazide 25 MG Tab PO STA (13:04)
== END 2024-01-23 13:19 | disposition home or self-care (01) ==
LOC: MW.ED 12:24
DX: R03.0 Elevated blood-pressure reading, without diagnosis of hypertension (principal); N39.0 Urinary tract infection, site not specified; Z79.899 Other long term (current) drug therapy; Z91.040 Latex allergy status; Z75.8 Other problems related to medical facilities and other health care
CPT/HCPCS: 99283; A9270

== ENCOUNTER 2024-03-18 15:21 | Emergency (ER) | payer SELFPAY ==
[2024-03-18] MEDS: Sodium Chloride 0.9% 1,000 ML IV ONE ×3 (15:58→17:18)
[2024-03-18] MEDS: Sodium Chloride 0.9% 10 ML Syringe FLUSH PRN (15:59)
[2024-03-18] MEDS: Sodium Chloride 0.9% 2.5 ML Syringe FLUSH PRN (15:59)
[2024-03-18 16:00] LABS: BASOPHILS ABSOLUTE AUTO 0.08 K/uL (0.00-0.20); BASOPHILS PERCENT AUTO 0.6 % (0.0-1.0); EOSINOPHILS ABSOLUTE AUTO 0.12 K/uL (0.00-0.45); EOSINOPHILS PERCENT AUTO 0.9 % (0.0-6.0); HEMATOCRIT 46.4 % (42.0-52.0); HEMOGLOBIN 16.1 g/dL (14.0-18.0); IMMATURE GRAN ABSOLUTE AUTO 0.06 K/uL (0.00-0.05); IMMATURE GRAN PERCENT AUTO 0.4 % (0.0-0.4); LYMPHOCYTES ABSOLUTE AUTO 1.61 K/uL (1.00-4.80); LYMPHOCYTES PERCENT AUTO 11.9 % (24.0-44.0); MEAN CORPUSCULAR HEMOGLOBIN 30.7 pg (28.0-32.0); MEAN CORPUSCULAR HGB CONC 34.7 g/dL (32.0-36.0); MEAN CORPUSCULAR VOLUME 88.5 fL (83.0-99.0); MEAN PLATELET VOLUME 9.1 fL (9.4-12.4); MONOCYTES ABSOLUTE AUTO 1.11 K/uL (0.00-0.80); MONOCYTES PERCENT AUTO 8.2 % (0.0-8.0); NEUTROPHILS ABSOLUTE AUTO 10.52 K/uL (1.80-7.70); PLATELET COUNT,PLT 297 K/uL (150-400); RED BLOOD CELL COUNT 5.24 M/uL (4.52-5.90)
[2024-03-18] MEDS: Ondansetron 4 MG/2 ML SDV IVPUSH ONE (16:00)
[2024-03-18 16:14] LABS: INR 0.99 (0.86-1.11); PTT,PARTIAL THROMBOPLSTIN TIME 26.8 SEC (23.9-30.7)
[2024-03-18 16:29] LABS: A/G RATIO 0.7 (0.9-1.6); ACETAMINOPHEN <2.0 ug/mL; ALANINE AMINOTRANSFERASE,ALT 35 IU/L (14-63); ALBUMIN 3.2 g/dL (3.4-5.0); ALKALINE PHOSPHATASE 77 U/L (46-116); ASPARTATE AMNIOTRANSFERASE,AST 35 IU/L (15-37); BILIRUBIN TOTAL 0.5 mg/dL (0.2-1.0); BLOOD UREA NITROGEN,BUN 26 mg/dL (7.0-18.0); CALCIUM 8.6 mg/dL (8.5-10.1); CARBON DIOXIDE,CO2 19.5 mmol/L (21.0-32.0); CHLORIDE,CL 103 mmol/L (98-107); CREATININE 1.4 mg/dL (0.8-1.3); EST CRCL DRUG DOSING (CG) 66.98 mL/min; ETHANOL BLOOD MEDICAL 258 mg/dL; GLUCOSE RANDOM 93 mg/dL (74-106); LIPASE 30 U/L (16-77); POTASSIUM,K 4.1 mmol/L (3.5-5.1); PROTEIN TOTAL,TP 7.7 g/dL (6.4-8.2); SALICYLATE 4.9 mg/dL (0.0-20.0); SODIUM,NA 143 mmol/L (136-148)
[2024-03-18 16:30] LABS: LACTIC ACID 6.2 mmol/L (0.4-2.0)
[2024-03-18 16:33] LABS: ESTIMATED GFR 60 mL/min (>60)
[2024-03-18] MEDS: Cefepime 2 GM in Sodium Chloride 0.9% 50 ML IV ONE (17:20)
[2024-03-18] MEDS ORDERED: Iopamidol 755 MG/ML 500 ML Multipack Bottle IVPUSH STA (18:13)
[2024-03-18 19:04] LABS: AMPHETAMINES SCREEN, URINE NEGATIVE (CUTOFF=500); BARBITURATE SCREEN,URINE NEGATIVE (CUTOFF=200); BENZODIAZEPINES SCREEN,URINE NEGATIVE (CUTOFF=150); BILIRUBIN,URINE NEGATIVE (NEGATIVE); BUPRENORPHINE SCREEN,URINE NEGATIVE (CUTOFF=10); GLUCOSE,URINE NEGATIVE (NEGATIVE); KETONES,URINE 15 mg/dL (NEGATIVE); LEUKOCYTE ESTERASE,URINE SMALL (NEGATIVE); METHADONE SCREEN, URINE NEGATIVE (CUTOFF=200); METHAMPHETAMINES SCREEN, URINE NEGATIVE (CUTOFF=500); NITRITE,URINE POSITIVE (NEGATIVE); OCCULT BLOOD,URINE MODERATE (NEGATIVE); OXYCODONE SCREEN,URINE NEGATIVE (CUT0FF=100); PCP SCREEN,URINE NEGATIVE (CUTOFF=25); PROTEIN,URINE 100 mg/dL (NEGATIVE); THC SCREEN,URINE 20 NG/ML NEGATIVE (CUTOFF=50); UROBILINOGEN,URINE 0.2 EU/dL (<2.0)
[2024-03-18 19:07] LABS: APPEARANCE,URINE CLOUDY
[2024-03-18 19:08] LABS: BACTERIA,URINE 2+ (NEGATIVE); COLOR,URINE DARK YELLOW; EPITHELIAL CELLS,URINE FEW (NONE-FEW); RBC,URINE 75-100 (0-2/HPF); WBC,URINE TO NUMEROUS TO COUNT (0-5/HPF)
[2024-03-18] MEDS: Midazolam 1 MG/ML 2 ML SDV IVPUSH ONE (20:58)
== END 2024-03-18 23:45 ==
LOC: MW.ED 15:21
DX: A41.9 Sepsis, unspecified organism (principal); R65.20 Severe sepsis without septic shock; N17.9 Acute kidney failure, unspecified; N39.0 Urinary tract infection, site not specified; F17.210 Nicotine dependence, cigarettes, uncomplicated; Z91.040 Latex allergy status; Z79.899 Other long term (current) drug therapy
CPT/HCPCS: 36415; 51702; 71045; 74177; 80053; 80143; 80179; 80305; 80307; 81001; 83605; 83690; 83735; 84484; 85025; 85610; 85730; 87040; 93005; 96365; 96375; 99285; J0692; J2250; J2405; J3490; J7030; 93010

== ENCOUNTER 2024-04-13 10:10 | Emergency (ER) | payer SELFPAY ==
[2024-04-13] MEDS ORDERED: Ketorolac 30 MG/ML SDV ONE ×2 (10:57→13:33)
[2024-04-13] MEDS ORDERED: Potassium Chloride 20 MEQ Tab.ER ONE ×2 (13:33)
[2024-04-13] MEDS ORDERED: cefTRIAXone 1 GM Vial ONE (13:33)
[2024-04-13] MEDS ORDERED: cefTRIAXone 1 GM in Sodium Chloride 0.9% 50 ML IV ONE (13:33)
[2024-04-13] MEDS ORDERED: Sodium Chloride 0.9% 50 ML ONE (13:34)
[2024-04-14 08:12] LABS: BASOPHILS ABSOLUTE AUTO 0.07 K/uL (0.00-0.20); EOSINOPHILS ABSOLUTE AUTO 0.29 K/uL (0.00-0.45); EOSINOPHILS PERCENT AUTO 4.1 % (0.0-6.0); HEMATOCRIT 39.1 % (42.0-52.0); HEMOGLOBIN 13.3 g/dL (14.0-18.0); IMMATURE GRAN ABSOLUTE AUTO 0.16 K/uL (0.00-0.05); IMMATURE GRAN PERCENT AUTO 2.3 % (0.0-0.4); LYMPHOCYTES ABSOLUTE AUTO 1.58 K/uL (1.00-4.80); LYMPHOCYTES PERCENT AUTO 22.2 % (24.0-44.0); MEAN CORPUSCULAR VOLUME 91.1 fL (83.0-99.0); MEAN PLATELET VOLUME 9.1 fL (9.4-12.4); MONOCYTES ABSOLUTE AUTO 0.66 K/uL (0.00-0.80); MONOCYTES PERCENT AUTO 9.3 % (0.0-8.0); NEUTROPHILS ABSOLUTE AUTO 4.35 K/uL (1.80-7.70); NEUTROPHILS PERCENT AUTO 61.1 % (41.0-71.0); PLATELET COUNT,PLT 356 K/uL (150-400); RED BLOOD CELL COUNT 4.29 M/uL (4.52-5.90); WHITE BLOOD CELL COUNT,WBC 7.11 K/uL (3.9-11.3)
[2024-04-14 13:15] LABS: A/G RATIO 0.7 (0.9-1.6); ALANINE AMINOTRANSFERASE,ALT 24 IU/L (14-63); ALBUMIN 2.7 g/dL (3.4-5.0); ALKALINE PHOSPHATASE 65 U/L (46-116); ASPARTATE AMNIOTRANSFERASE,AST 22 IU/L (15-37); BILIRUBIN TOTAL 0.1 mg/dL (0.2-1.0); BLOOD UREA NITROGEN,BUN 8 mg/dL (7.0-18.0); CALCIUM 8.5 mg/dL (8.5-10.1); CARBON DIOXIDE,CO2 27.2 mmol/L (21.0-32.0); CHLORIDE,CL 104 mmol/L (98-107); CREATININE 1.1 mg/dL (0.8-1.3); GLUCOSE RANDOM 91 mg/dL (74-106); LIPASE 27 U/L (16-77); POTASSIUM,K 3.1 mmol/L (3.5-5.1); PROTEIN TOTAL,TP 6.8 g/dL (6.4-8.2); SODIUM,NA 142 mmol/L (136-148)
[2024-04-14 13:20] LABS: ESTIMATED GFR 80 mL/min (>60)
[2024-04-14 16:00] LABS: APPEARANCE,URINE CLEAR; BILIRUBIN,URINE NEGATIVE (NEGATIVE); COLOR,URINE YELLOW; GLUCOSE,URINE NEGATIVE (NEGATIVE); KETONES,URINE NEGATIVE (NEGATIVE); LEUKOCYTE ESTERASE,URINE LARGE (NEGATIVE); NITRITE,URINE POSITIVE (NEGATIVE); OCCULT BLOOD,URINE LARGE (NEGATIVE); PROTEIN,URINE 100 mg/dL (NEGATIVE); UROBILINOGEN,URINE 0.2 EU/dL (<2.0)
[2024-04-14 17:44] LABS: BACTERIA,URINE 1+ (NEGATIVE); EPITHELIAL CELLS,URINE RARE (NONE-FEW); MUCUS,URINE LIGHT (NONE-MOD); WBC,URINE 30-36 (0-5/HPF)
== END 2024-04-13 14:35 | disposition home or self-care (01) ==
LOC: MW.ED 11:06
DX: N32.89 Other specified disorders of bladder (principal); Z91.040 Latex allergy status
CPT/HCPCS: 36415; 80053; 81001; 83690; 85025; 96374; 96375; 99284; A9270; J0696; J1885; J3490; 87086; 87088; 87186

== ENCOUNTER 2024-05-04 12:38 | Emergency (ER) | payer SELFPAY ==
[2024-05-04 13:17] LABS: BASOPHILS ABSOLUTE AUTO 0.05 K/uL (0.00-0.20); BASOPHILS PERCENT AUTO 0.3 % (0.0-1.0); EOSINOPHILS ABSOLUTE AUTO 0.11 K/uL (0.00-0.45); EOSINOPHILS PERCENT AUTO 0.6 % (0.0-6.0); HEMATOCRIT 46.4 % (42.0-52.0); HEMOGLOBIN 15.8 g/dL (14.0-18.0); IMMATURE GRAN ABSOLUTE AUTO 0.14 K/uL (0.00-0.05); IMMATURE GRAN PERCENT AUTO 0.8 % (0.0-0.4); LYMPHOCYTES ABSOLUTE AUTO 1.04 K/uL (1.00-4.80); LYMPHOCYTES PERCENT AUTO 6.1 % (24.0-44.0); MEAN CORPUSCULAR HEMOGLOBIN 30.7 pg (28.0-32.0); MEAN CORPUSCULAR HGB CONC 34.1 g/dL (32.0-36.0); MEAN CORPUSCULAR VOLUME 90.1 fL (83.0-99.0); MEAN PLATELET VOLUME 9.9 fL (9.4-12.4); MONOCYTES ABSOLUTE AUTO 0.59 K/uL (0.00-0.80); MONOCYTES PERCENT AUTO 3.5 % (0.0-8.0); NEUTROPHILS ABSOLUTE AUTO 15.09 K/uL (1.80-7.70); NEUTROPHILS PERCENT AUTO 88.7 % (41.0-71.0); PLATELET COUNT,PLT 192 K/uL (150-400); RED BLOOD CELL COUNT 5.15 M/uL (4.52-5.90); WHITE BLOOD CELL COUNT,WBC 17.02 K/uL (3.9-11.3)
[2024-05-04] MEDS: Sodium Chloride 0.9% 1,000 ML IV ONE ×2 (13:31→14:43)
[2024-05-04] MEDS: Sodium Chloride 0.9% 2.5 ML Syringe FLUSH PRN (13:37)
[2024-05-04] MEDS: Sodium Chloride 0.9% 10 ML Syringe FLUSH PRN (13:37)
[2024-05-04] MEDS: cefTRIAXone 2 GM in Sodium Chloride 0.9% 50 ML IV ONE (13:37)
[2024-05-04] MEDS: fentaNYL 50 MCG/ML SDV IVPUSH ONE (13:37)
[2024-05-04] MEDS: Ondansetron 4 MG/2 ML SDV IVPUSH ONE (13:37)
[2024-05-04 13:52] LABS: LACTIC ACID 2.9 mmol/L (0.4-2.0)
[2024-05-04 13:55] LABS: A/G RATIO 0.7 (0.9-1.6); ALBUMIN 3.3 g/dL (3.4-5.0); BILIRUBIN TOTAL 1.3 mg/dL (0.2-1.0); CARBON DIOXIDE,CO2 23.5 mmol/L (21.0-32.0); CREATININE 2.1 mg/dL (0.8-1.3); EST CRCL DRUG DOSING (CG) 44.14 mL/min; POTASSIUM,K 3.6 mmol/L (3.5-5.1); PROTEIN TOTAL,TP 8.2 g/dL (6.4-8.2)
[2024-05-04 14:45] LABS: APPEARANCE,URINE CLOUDY; BILIRUBIN,URINE NEGATIVE (NEGATIVE); GLUCOSE,URINE NEGATIVE (NEGATIVE); KETONES,URINE TRACE mg/dL (NEGATIVE); LEUKOCYTE ESTERASE,URINE MODERATE (NEGATIVE); NITRITE,URINE POSITIVE (NEGATIVE); OCCULT BLOOD,URINE LARGE (NEGATIVE); PH,URINE 8.5 (5.0-8.0); PROTEIN,URINE 100 mg/dL (NEGATIVE); UROBILINOGEN,URINE 0.2 EU/dL (<2.0)
[2024-05-04 14:49] LABS: COLOR,URINE BROWN
[2024-05-04 14:54] LABS: AMORPHOUS SEDIMENT,URINE LIGHT (NEGATIVE); BACTERIA,URINE 2+ (NEGATIVE); EPITHELIAL CELLS,URINE FEW (NONE-FEW); RBC,URINE 70-80 (0-2/HPF); WBC,URINE 50-60 (0-5/HPF)
== END 2024-05-04 16:54 | disposition home or self-care (01) ==
LOC: MW.ED 12:38
DX: T83.511A Infection and inflammatory reaction due to indwelling urethral catheter, initial encounter (principal); Z91.040 Latex allergy status
CPT/HCPCS: 36415; 51702; 80053; 81001; 83605; 85025; 96361; 96365; 96375; 99285; J0696; J2405; J3010; J3490; J7030; 99284

== ENCOUNTER 2024-05-06 11:47 | Emergency (ER) | payer SELFPAY ==
[2024-05-06] MEDS: Cefdinir 300 MG Cap PO ONE (13:45)
== END 2024-05-06 16:50 | disposition home or self-care (01) ==
LOC: MW.ED 11:47
DX: F10.929 Alcohol use, unspecified with intoxication, unspecified (principal); Z91.040 Latex allergy status; Z79.899 Other long term (current) drug therapy; Z75.8 Other problems related to medical facilities and other health care
CPT/HCPCS: 99285; A9270; 99283

== ENCOUNTER 2024-09-01 17:26 | Emergency (ER) | payer MEDICAID ==
[2024-09-01 18:00] LABS: APPEARANCE,URINE CLOUDY; BILIRUBIN,URINE NEGATIVE (NEGATIVE); COLOR,URINE YELLOW; GLUCOSE,URINE NEGATIVE (NEGATIVE); KETONES,URINE NEGATIVE (NEGATIVE); LEUKOCYTE ESTERASE,URINE LARGE (NEGATIVE); NITRITE,URINE NEGATIVE (NEGATIVE); OCCULT BLOOD,URINE LARGE (NEGATIVE); PH,URINE 6.5 (5.0-8.0); PROTEIN,URINE 100 mg/dL (NEGATIVE); UROBILINOGEN,URINE 0.2 EU/dL (<2.0)
[2024-09-01 18:08] LABS: BACTERIA,URINE 2+ (NEGATIVE); EPITHELIAL CELLS,URINE RARE (NONE-FEW); WBC,URINE TOO NUMEROUS TO CT (0-5/HPF)
[2024-09-01] MEDS: Sodium Chloride 0.9% 1,000 ML IV STA (18:08)
[2024-09-01 18:09] LABS: BASOPHILS ABSOLUTE AUTO 0.04 K/uL (0.00-0.20); BASOPHILS PERCENT AUTO 0.5 % (0.0-1.0); EOSINOPHILS ABSOLUTE AUTO 0.16 K/uL (0.00-0.45); EOSINOPHILS PERCENT AUTO 1.8 % (0.0-6.0); HEMATOCRIT 36.7 % (42.0-52.0); HEMOGLOBIN 12.4 g/dL (14.0-18.0); IMMATURE GRAN ABSOLUTE AUTO 0.05 K/uL (0.00-0.05); IMMATURE GRAN PERCENT AUTO 0.6 % (0.0-0.4); LYMPHOCYTES ABSOLUTE AUTO 1.28 K/uL (1.00-4.80); LYMPHOCYTES PERCENT AUTO 14.5 % (24.0-44.0); MEAN CORPUSCULAR HEMOGLOBIN 29.2 pg (28.0-32.0); MEAN CORPUSCULAR HGB CONC 33.8 g/dL (32.0-36.0); MEAN CORPUSCULAR VOLUME 86.4 fL (83.0-99.0); MEAN PLATELET VOLUME 9.1 fL (9.4-12.4); MONOCYTES ABSOLUTE AUTO 0.98 K/uL (0.00-0.80); MONOCYTES PERCENT AUTO 11.1 % (0.0-8.0); NEUTROPHILS ABSOLUTE AUTO 6.29 K/uL (1.80-7.70); NEUTROPHILS PERCENT AUTO 71.5 % (41.0-71.0); PLATELET COUNT,PLT 260 K/uL (150-400); RED BLOOD CELL COUNT 4.25 M/uL (4.52-5.90)
[2024-09-01] MEDS: Sodium Chloride 0.9% 10 ML Syringe FLUSH PRN (18:09)
[2024-09-01] MEDS: Sodium Chloride 0.9% 2.5 ML Syringe FLUSH PRN (18:09)
[2024-09-01 18:33] LABS: A/G RATIO 0.6 (0.9-1.6); ALBUMIN 2.9 g/dL (3.4-5.0); BILIRUBIN TOTAL 0.8 mg/dL (0.2-1.0); CALCIUM 9.1 mg/dL (8.5-10.1); CARBON DIOXIDE,CO2 25.9 mmol/L (21.0-32.0); CREATININE 1.5 mg/dL (0.8-1.3); EST CRCL DRUG DOSING (CG) 61.79 mL/min; POTASSIUM,K 3.8 mmol/L (3.5-5.1); PROTEIN TOTAL,TP 7.7 g/dL (6.4-8.2)
[2024-09-01] MEDS: ceFAZolin 2 GM in Sodium Chloride 0.9% 50 ML IV ONE (18:53)
[2024-09-01] MEDS: Acetaminophen 500 MG Tab PO ONE (19:22)
== END 2024-09-01 19:10 | disposition home or self-care (01) ==
LOC: MW.ED 17:26
DX: N39.0 Urinary tract infection, site not specified (principal); N17.9 Acute kidney failure, unspecified; N32.89 Other specified disorders of bladder; Z75.8 Other problems related to medical facilities and other health care; Z79.899 Other long term (current) drug therapy; Z91.040 Latex allergy status
CPT/HCPCS: 36415; 51702; 80053; 81001; 83605; 85025; 96361; 96365; 99283; A9270; J0690; J3490; J7030

== ENCOUNTER 2024-10-28 23:15 | Emergency (ER) | payer MEDICAID ==
[2024-10-29 00:26] LABS: APPEARANCE,URINE SLT CLOUDY; COLOR,URINE YELLOW
[2024-10-29 00:27] LABS: BACTERIA,URINE MANY (NEGATIVE); BILIRUBIN,URINE NEGATIVE (NEGATIVE); EPITHELIAL CELLS,URINE FEW (NONE-FEW); GLUCOSE,URINE NEGATIVE (NEGATIVE); KETONES,URINE NEGATIVE (NEGATIVE); LEUKOCYTE ESTERASE,URINE 2+ (NEGATIVE); NITRITE,URINE POSITIVE (NEGATIVE); OCCULT BLOOD,URINE LARGE (NEGATIVE); PROTEIN,URINE 1+ mg/dL (NEGATIVE); RBC,URINE 35-40 (0-2/HPF); UROBILINOGEN,URINE 0.2 EU/dL (<2.0); WBC,URINE TOO NUMEROUS TO CT (0-5/HPF)
[2024-10-29] MEDS: Amoxicillin/Clavulanate K 875-125 MG Tab PO ONE (00:40)
== END 2024-10-29 00:46 | disposition home or self-care (01) ==
LOC: MW.ED 23:15
DX: N39.0 Urinary tract infection, site not specified (principal); Z46.6 Encounter for fitting and adjustment of urinary device; F17.210 Nicotine dependence, cigarettes, uncomplicated; Z75.8 Other problems related to medical facilities and other health care; Z91.040 Latex allergy status; Z79.899 Other long term (current) drug therapy
CPT/HCPCS: 51702; 81001; 99283; A9270

== ENCOUNTER 2024-12-27 18:09 | Emergency (ER) | payer MEDICARE, MEDICAID | END 2024-12-27 21:50 | disposition home or self-care (01) | LOC: MW.ED 18:09 | DX: R33.9 Retention of urine, unspecified (principal); F17.210 Nicotine dependence, cigarettes, uncomplicated; Z75.3 Unavailability and inaccessibility of health-care facilities; Z91.040 Latex allergy status; Z79.899 Other long term (current) drug therapy | CPT/HCPCS: 51702; 99282; 99284 ==

== ENCOUNTER 2025-01-02 09:32 | Emergency (ER) | payer MEDICAID, OTHER | END 2025-01-02 13:20 | disposition home or self-care (01) | LOC: MW.ED 09:32 | DX: N32.89 Other specified disorders of bladder (principal); F17.210 Nicotine dependence, cigarettes, uncomplicated; Z91.040 Latex allergy status; Z79.899 Other long term (current) drug therapy | CPT/HCPCS: 51702; 99282; 99284 ==

== ENCOUNTER 2025-03-20 11:53 | Inpatient (IN) | payer MEDICAID, OTHER ==
[2025-03-20] MEDS ORDERED: Sodium Chloride 0.9% 10 ML Syringe FLUSH PRN ×2 (12:15→15:47)
[2025-03-20] MEDS ORDERED: Sodium Chloride 0.9% 2.5 ML Syringe FLUSH PRN ×2 (12:15→15:47)
[2025-03-20] MEDS: Ketorolac 30 MG/ML SDV IVPUSH ONE (12:31)
[2025-03-20] MEDS: Sodium Chloride 0.9% 1,000 ML IV ONE ×2 (12:31→13:36)
[2025-03-20 12:33] LABS: BASOPHILS PERCENT AUTO 0.8 % (0.0-1.0); EOSINOPHILS ABSOLUTE AUTO 0.25 K/uL (0.00-0.45); HEMATOCRIT 47.6 % (42.0-52.0); IMMATURE GRAN ABSOLUTE AUTO 0.08 K/uL (0.00-0.05); IMMATURE GRAN PERCENT AUTO 0.6 % (0.0-0.4); LYMPHOCYTES ABSOLUTE AUTO 1.86 K/uL (1.00-4.80); LYMPHOCYTES PERCENT AUTO 14.6 % (24.0-44.0); MEAN CORPUSCULAR HEMOGLOBIN 32.9 pg (28.0-32.0); MEAN CORPUSCULAR HGB CONC 33.6 g/dL (32.0-36.0); MEAN CORPUSCULAR VOLUME 97.7 fL (83.0-99.0); MEAN PLATELET VOLUME 9.5 fL (9.4-12.4); MONOCYTES ABSOLUTE AUTO 1.25 K/uL (0.00-0.80); MONOCYTES PERCENT AUTO 9.8 % (0.0-8.0); NEUTROPHILS ABSOLUTE AUTO 9.23 K/uL (1.80-7.70); NEUTROPHILS PERCENT AUTO 72.2 % (41.0-71.0); PLATELET COUNT,PLT 278 K/uL (150-400); RED BLOOD CELL COUNT 4.87 M/uL (4.52-5.90); WHITE BLOOD CELL COUNT,WBC 12.77 K/uL (3.9-11.3)
[2025-03-20 12:39] LABS: APPEARANCE,URINE CLOUDY; BILIRUBIN,URINE NEGATIVE (NEGATIVE); COLOR,URINE YELLOW; GLUCOSE,URINE NEGATIVE (NEGATIVE); KETONES,URINE TRACE mg/dL (NEGATIVE); LEUKOCYTE ESTERASE,URINE MODERATE (NEGATIVE); NITRITE,URINE NEGATIVE (NEGATIVE); OCCULT BLOOD,URINE LARGE (NEGATIVE); PH,URINE >= 9.0 (5.0-8.0); PROTEIN,URINE 100 mg/dL (NEGATIVE)
[2025-03-20 12:52] LABS: BACTERIA,URINE 4+ (NEGATIVE); EPITHELIAL CELLS,URINE RARE (NONE-FEW); MUCUS,URINE HEAVY (NONE-MOD); RBC,URINE 50-60 (0-2/HPF); TRIPLE PHOSPHATE CRYSTALS,UR MODERATE (NEGATIVE); WBC,URINE 20-30 (0-5/HPF)
[2025-03-20 13:05] LABS: A/G RATIO 1.1 (0.9-1.6); ALBUMIN 4.1 g/dL (3.4-5.0); BILIRUBIN TOTAL 0.4 mg/dL (0.2-1.0); CALCIUM 9.4 mg/dL (8.5-10.1); CARBON DIOXIDE,CO2 19.5 mmol/L (21.0-32.0); CREATININE 1.7 mg/dL (0.8-1.3); EST CRCL DRUG DOSING (CG) 52.91 mL/min; MAGNESIUM 1.9 mg/dL (1.8-2.4); POTASSIUM,K 4.6 mmol/L (3.5-5.1); PROTEIN TOTAL,TP 7.8 g/dL (6.4-8.2)
[2025-03-20 13:10] LABS: LACTIC ACID 5.3 mmol/L (0.4-2.0)
[2025-03-20] MEDS: Piperacillin/Tazobactam 3.375 GM in Sodium Chloride 0.9% 100 ML IV ONE (13:51)
[2025-03-20] MEDS: VANCOmycin 2 GM/400 ML 2 GM in Premix Bag 1 BAG IV ONE (14:28)
[2025-03-20] MEDS ORDERED: Acetaminophen 325 MG Tab PO PRN (15:47)
[2025-03-20] MEDS ORDERED: Ondansetron 4 MG/2 ML SDV IVPUSH PRN (15:47)
[2025-03-20] MEDS ORDERED: Polyethylene Glycol 3350 Powder 17 GM Packet PO PRN (15:47)
[2025-03-20] MEDS ORDERED: hydrOXYzine Pamoate 25 MG Cap PO PRN (15:49)
[2025-03-20] MEDS ORDERED: LORazepam 0.5 MG Tab PO PRN (15:51)
[2025-03-20] MEDS: Sodium Chloride 0.9% 1,000 ML IV SCH ×2 (16:35→18:46)
[2025-03-20] MEDS: Heparin Sodium 5,000 Units/ML Vial SUBCUT SCH (16:35)
[2025-03-20] MEDS: Sodium Chloride 0.9% 500 ML IV SCH (17:41)
[2025-03-20] MEDS: Piperacillin/Tazobactam 4.5 GM in Sodium Chloride 0.9% 100 ML IV SCH (17:41)
[2025-03-20] MEDS ORDERED: Docusate Sodium 100 MG Cap PO PRN (21:00)
[2025-03-20] MEDS: Mirtazapine 15 MG Tab PO SCH (21:30)
[2025-03-20] MEDS: Propranolol 10 MG Tab PO SCH (21:32)
[2025-03-20] MEDS: Folic Acid 1 MG Tab PO SCH (21:32)
[2025-03-20] MEDS: Thiamine 100 MG Tab PO SCH (22:35)
[2025-03-21 05:51] LABS: BASOPHILS ABSOLUTE AUTO 0.05 K/uL (0.00-0.20); BASOPHILS PERCENT AUTO 1.1 % (0.0-1.0); EOSINOPHILS ABSOLUTE AUTO 0.32 K/uL (0.00-0.45); HEMATOCRIT 37.3 % (42.0-52.0); IMMATURE GRAN ABSOLUTE AUTO 0.03 K/uL (0.00-0.05); IMMATURE GRAN PERCENT AUTO 0.7 % (0.0-0.4); LYMPHOCYTES ABSOLUTE AUTO 0.91 K/uL (1.00-4.80); MEAN CORPUSCULAR HEMOGLOBIN 32.2 pg (28.0-32.0); MEAN CORPUSCULAR HGB CONC 32.2 g/dL (32.0-36.0); MONOCYTES ABSOLUTE AUTO 0.71 K/uL (0.00-0.80); MONOCYTES PERCENT AUTO 15.6 % (0.0-8.0); NEUTROPHILS ABSOLUTE AUTO 2.54 K/uL (1.80-7.70); NEUTROPHILS PERCENT AUTO 55.6 % (41.0-71.0); PLATELET COUNT,PLT 151 K/uL (150-400); RED BLOOD CELL COUNT 3.73 M/uL (4.52-5.90); WHITE BLOOD CELL COUNT,WBC 4.56 K/uL (3.9-11.3)
[2025-03-21 06:26] LABS: CALCIUM 8.2 mg/dL (8.5-10.1); CARBON DIOXIDE,CO2 22.4 mmol/L (21.0-32.0); CREATININE 1.6 mg/dL (0.8-1.3); EST CRCL DRUG DOSING (CG) 57.93 mL/min; MAGNESIUM 1.6 mg/dL (1.8-2.4); POTASSIUM,K 4.2 mmol/L (3.5-5.1)
[2025-03-21] MEDS: Magnesium Sulfate 2 GM/50 mL 2 GM in Premix Bag 1 BAG IV ONE (08:42)
[2025-03-21] MEDS: Famotidine 20 MG Tab PO SCH (08:47)
[2025-03-21] MEDS: oxyCODONE 5 MG Tab PO PRN (08:48)
[2025-03-21] MEDS ORDERED: VANCOmycin 1.5 GM in Sodium Chloride 0.9% 250 ML IV SCH (14:30)
== END 2025-03-21 11:58 | DRG 699 ==
LOC: MW.ED 11:53 → MW.MS 15:08
PROVIDERS: ADMIT Family Medicine; ATTEND Family Medicine
PROC: 0T2BX0Z Change Drainage Device in Bladder, External Approach (ICD-10-PCS; principal; 2025-03-20)
DX: T83.511A Infection and inflammatory reaction due to indwelling urethral catheter, initial encounter (principal); E87.20 Acidosis, unspecified; N13.6 Pyonephrosis; N17.9 Acute kidney failure, unspecified; E86.0 Dehydration; F10.929 Alcohol use, unspecified with intoxication, unspecified; N40.1 Benign prostatic hyperplasia with lower urinary tract symptoms; R35.0 Frequency of micturition; R33.8 Other retention of urine; F19.21 Other psychoactive substance dependence, in remission; F32.A Depression, unspecified; F17.200 Nicotine dependence, unspecified, uncomplicated; N39.0 Urinary tract infection, site not specified; Z79.899 Other long term (current) drug therapy; Y84.6 Urinary catheterization as the cause of abnormal reaction of the patient, or of later complication, without mention of misadventure at the time of the procedure; Y92.89 Other specified places as the place of occurrence of the external cause; Z91.040 Latex allergy status
CPT/HCPCS: 36415; 80053; 81001; 83605; 83690; 83735; 85025; 87040 ×2; 87086; 87088 ×2; 87186 ×2; J1885; J2543; J3372; J7030 ×2; 51702; 74176; 74176-26; 80048; 80202; 96361; 96365; 96367; 96375; 99222; 99239; 99284; 99285-25; A9270-GY; J1644; J3475; J7040

== ENCOUNTER 2025-04-11 14:27 | Emergency (ER) | payer MEDICAID ==
[2025-04-11] MEDS ORDERED: Sodium Chloride 0.9% 2.5 ML Syringe FLUSH PRN (15:22)
[2025-04-11] MEDS ORDERED: Sodium Chloride 0.9% 10 ML Syringe FLUSH PRN (15:22)
[2025-04-11 15:31] LABS: BASOPHILS ABSOLUTE AUTO 0.05 K/uL (0.00-0.20); BASOPHILS PERCENT AUTO 0.7 % (0.0-1.0); EOSINOPHILS ABSOLUTE AUTO 0.07 K/uL (0.00-0.45); EOSINOPHILS PERCENT AUTO 1.0 % (0.0-6.0); IMMATURE GRAN ABSOLUTE AUTO 0.02 K/uL (0.00-0.05); IMMATURE GRAN PERCENT AUTO 0.3 % (0.0-0.4); LYMPHOCYTES ABSOLUTE AUTO 1.18 K/uL (1.00-4.80); LYMPHOCYTES PERCENT AUTO 17.5 % (24.0-44.0); MEAN PLATELET VOLUME 10.0 fL (9.4-12.4); MONOCYTES ABSOLUTE AUTO 0.66 K/uL (0.00-0.80); MONOCYTES PERCENT AUTO 9.8 % (0.0-8.0); NEUTROPHILS ABSOLUTE AUTO 4.75 K/uL (1.80-7.70); NEUTROPHILS PERCENT AUTO 70.7 % (41.0-71.0); NRBC ABSOLUTE 0.00 K/uL (0.00-0.02); NRBC PERCENT 0.0 /100WBC (0.0-0.2); PLATELET COUNT,PLT 164 K/uL (150-400); RED BLOOD CELL COUNT 4.42 M/uL (4.52-5.90); WHITE BLOOD CELL COUNT,WBC 6.73 K/uL (3.9-11.3)
[2025-04-11 15:52] LABS: A/G RATIO 1.0 (0.9-1.6); ALANINE AMINOTRANSFERASE,ALT 41.0 IU/L (14-63); ASPARTATE AMNIOTRANSFERASE,AST 34.0 IU/L (15-37); BILIRUBIN TOTAL 0.9 mg/dL (0.2-1.0); BLOOD UREA NITROGEN,BUN 22.0 mg/dL (7.0-18.0); CARBON DIOXIDE,CO2 27.5 mmol/L (21.0-32.0); CHLORIDE,CL 97.0 mmol/L (98-107); CREATININE 1.7 mg/dL (0.8-1.3); EST CRCL DRUG DOSING (CG) 54.52 mL/min; GLUCOSE RANDOM 103.0 mg/dL (74-106); POTASSIUM,K 3.4 mmol/L (3.5-5.1); PROTEIN TOTAL,TP 7.5 g/dL (6.4-8.2); SODIUM,NA 136.0 mmol/L (136-148)
[2025-04-11 15:53] LABS: ESTIMATED GFR 47.0 mL/min (>60)
[2025-04-11 15:59] LABS: LACTIC ACID 1.3 mmol/L (0.4-2.0)
[2025-04-11 16:43] LABS: APPEARANCE,URINE CLOUDY; GLUCOSE,URINE NEGATIVE (NEGATIVE); OCCULT BLOOD,URINE LARGE (NEGATIVE)
[2025-04-11 16:44] LABS: EPITHELIAL CELLS,URINE RARE (NONE-FEW)
[2025-04-11] MEDS: Potassium Chloride 20 MEQ Tab.ER PO ONE (18:49)
[2025-04-11] MEDS: cefTRIAXone 2 GM in Water For Injection, Sterile 20 ML IVPUSH ONE (18:49)
== END 2025-04-11 19:00 | disposition home or self-care (01) ==
LOC: MW.ED 14:27
DX: N30.90 Cystitis, unspecified without hematuria (principal); N18.9 Chronic kidney disease, unspecified; E66.9 Obesity, unspecified; F17.200 Nicotine dependence, unspecified, uncomplicated; Z91.040 Latex allergy status; Z79.899 Other long term (current) drug therapy; Z68.33 Body mass index [BMI] 33.0-33.9, adult
CPT/HCPCS: 36415; 80053; 81001; 83605; 83690; 83735; 85025; 96374; 99283; A9270; J0696

== ENCOUNTER 2025-05-02 12:26 | Emergency (ER) | payer MEDICAID ==
[2025-05-02 14:02] LABS: GLUCOSE,URINE NEGATIVE (NEGATIVE); OCCULT BLOOD,URINE MODERATE (NEGATIVE)
[2025-05-02 14:09] LABS: APPEARANCE,URINE CLOUDY
[2025-05-02 14:12] LABS: SQUAMOUS EPITHELIAL CELLS,UR FEW
== END 2025-05-02 14:34 | disposition home or self-care (01) ==
LOC: MW.ED 12:26
DX: T83.511A Infection and inflammatory reaction due to indwelling urethral catheter, initial encounter (principal); F10.10 Alcohol abuse, uncomplicated; Z91.040 Latex allergy status; Z79.899 Other long term (current) drug therapy
CPT/HCPCS: 36415; 51702; 80307; 81001; 87086; 99284; A9270; 99283

== ENCOUNTER 2025-07-04 14:21 | Emergency (ER) | payer MEDICAID, OTHER | END 2025-07-04 15:37 | disposition left against medical advice (07) | LOC: MW.ED 14:21 | DX: F10.120 Alcohol abuse with intoxication, uncomplicated (principal); E66.9 Obesity, unspecified; F17.200 Nicotine dependence, unspecified, uncomplicated; Z91.040 Latex allergy status; Z79.899 Other long term (current) drug therapy; Z68.35 Body mass index [BMI] 35.0-35.9, adult | CPT/HCPCS: 36415; 80307; 99283; 99284 ==

== ENCOUNTER 2025-07-07 11:57 | Emergency (ER) | payer MEDICAID ==
[2025-07-07 12:25] LABS: BASOPHILS ABSOLUTE AUTO 0.05 K/uL (0.00-0.20); BASOPHILS PERCENT AUTO 0.6 % (0.0-1.0); EOSINOPHILS ABSOLUTE AUTO 0.03 K/uL (0.00-0.45); EOSINOPHILS PERCENT AUTO 0.4 % (0.0-6.0); IMMATURE GRAN ABSOLUTE AUTO 0.04 K/uL (0.00-0.05); IMMATURE GRAN PERCENT AUTO 0.5 % (0.0-0.4); LYMPHOCYTES ABSOLUTE AUTO 1.04 K/uL (1.00-4.80); LYMPHOCYTES PERCENT AUTO 12.9 % (24.0-44.0); MEAN PLATELET VOLUME 9.3 fL (9.4-12.4); MONOCYTES ABSOLUTE AUTO 0.81 K/uL (0.00-0.80); MONOCYTES PERCENT AUTO 10.0 % (0.0-8.0); NEUTROPHILS ABSOLUTE AUTO 6.09 K/uL (1.80-7.70); NEUTROPHILS PERCENT AUTO 75.6 % (41.0-71.0); NRBC ABSOLUTE 0.00 K/uL (0.00-0.02); NRBC PERCENT 0.0 /100WBC (0.0-0.2); PLATELET COUNT,PLT 180 K/uL (150-400); RED BLOOD CELL COUNT 4.55 M/uL (4.52-5.90); WHITE BLOOD CELL COUNT,WBC 8.06 K/uL (3.9-11.3)
[2025-07-07 12:46] LABS: A/G RATIO 0.9 (0.9-1.6); ALANINE AMINOTRANSFERASE,ALT 20.0 IU/L (14-63); ASPARTATE AMNIOTRANSFERASE,AST 23.0 IU/L (15-37); BILIRUBIN TOTAL 0.5 mg/dL (0.2-1.0); BLOOD UREA NITROGEN,BUN 29.0 mg/dL (7.0-18.0); CARBON DIOXIDE,CO2 22.4 mmol/L (21.0-32.0); CHLORIDE,CL 101.0 mmol/L (98-107); CREATININE 1.3 mg/dL (0.8-1.3); EST CRCL DRUG DOSING (CG) 70.47 mL/min; GLUCOSE RANDOM 118.0 mg/dL (74-106); POTASSIUM,K 4.5 mmol/L (3.5-5.1); PROTEIN TOTAL,TP 7.7 g/dL (6.4-8.2); SODIUM,NA 140.0 mmol/L (136-148)
[2025-07-07 12:50] LABS: ESTIMATED GFR 65.0 mL/min (>60)
[2025-07-07 13:19] LABS: GLUCOSE,URINE NEGATIVE (NEGATIVE); OCCULT BLOOD,URINE LARGE (NEGATIVE)
[2025-07-07 13:20] LABS: APPEARANCE,URINE CLOUDY
[2025-07-07 13:25] LABS: EPITHELIAL CELLS,URINE FEW (NONE-FEW)
== END 2025-07-07 13:49 | disposition home or self-care (01) ==
LOC: MW.ED 11:57
DX: T83.511A Infection and inflammatory reaction due to indwelling urethral catheter, initial encounter (principal); N39.0 Urinary tract infection, site not specified; E86.0 Dehydration; E66.9 Obesity, unspecified; Z79.899 Other long term (current) drug therapy; Z91.040 Latex allergy status; Z68.33 Body mass index [BMI] 33.0-33.9, adult; Z75.3 Unavailability and inaccessibility of health-care facilities
CPT/HCPCS: 36415; 80053; 81001; 83690; 83735; 85025; 87086; 87088; 87186; 93005; 96360; 99285; A9270; J7030; 93010; 99284